=== PATIENT | male | born 1985 | race Caucasian/White ===

== ENCOUNTER 2018-02-01 05:35 | Emergency (ER) | payer OTHER ==
[2018-02-01] MEDS ORDERED: SODIUM CHLORIDE 0.9% 1,000 ML IV STA (05:53)
[2018-02-01] MEDS ORDERED: ACETAMINOPHEN TAB 500 MG TAB PO STA (05:53)
[2018-02-01] MEDS ORDERED: KETOROLAC 30 MG/ML 1 ML VIAL IVP STA (05:57)
--- NOTE | 2018-02-01 06:01 | ED ---
General Adult HPI - General Chief complaint: Weakness Stated complaint: WEAKNESS Time Seen by Provider: 02/01/18 05:40 Source: patient, RN notes reviewed, old records reviewed Mode of arrival: ambulatory Limitations: no limitations - History of Present Illness Initial comments: 32-year-old female presenting for evaluation of generalized weakness and fatigue. Patient states that proximally 4 hours prior to presentation he began having generalized weakness. He does report myalgias. Denies rhinorrhea or sore throat. He has had a mild cough. Only significant past medical history is asthma. He did have some mild dyspnea associated with his cough and chest pain. This is resolved. Complains of subjective fever and chills. No abdominal pain. No nausea or vomiting. - Related Data Previous Rx's Medication Instructions Recorded Albuterol Inhaler [Ventolin Hfa 2 puff INHALATION Q4HR PRN #1 07/07/14 Inhaler] inhaler Amoxicillin/Potassium Clav 1 tab PO Q12HR #20 tab 01/05/16 [Augmentin 875-125 Tablet] predniSONE 10 mg PO DIRECTED #20 tab 01/05/16 Ibuprofen [Motrin] 600 mg PO Q8HR PRN #24 tab 02/01/18 Oseltamivir [Tamiflu] 75 mg PO Q12HR #10 cap 02/01/18 Allergies Allergy/AdvReac Type Severity Reaction Status Date / Time No Known Allergies Allergy Verified 01/05/16 15:59 Review of Systems ROS Statement: Those systems with pertinent positive or pertinent negative responses have been documented in the HPI. ROS Other: All systems not noted in ROS Statement are negative. Past Medical History Past Medical History: Asthma History of Any Multi-Drug Resistant Organisms: None Reported Past Surgical History: Adenoidectomy, Tonsillectomy Past Psychological History: No Psychological Hx Reported Smoking Status: Current every day smoker Past Alcohol Use History: Occasional Past Drug Use History: None Reported General Exam Limitations: no limitations General appearance: alert, in no apparent distress Head exam: Present: atraumatic, normocephalic Eye exam: Present: normal appearance, PERRL ENT exam: Present: mucous membranes dry Neck exam: Present: normal inspection, full ROM. Absent: tenderness, meningismus Cardiovascular Exam: Present: normal rhythm, tachycardia GI/Abdominal exam: Present: soft. Absent: distended, tenderness Extremities exam: Present: normal inspection, normal capillary refill. Absent: pedal edema, calf tenderness Neurological exam: Present: alert, oriented X3, CN II-XII intact. Absent: motor sensory deficit Psychiatric exam: Present: normal affect, normal mood Skin exam: Present: warm, dry, intact. Absent: cyanosis, diaphoretic Course Vital Signs 02/01/18 02/01/18 05:40 06:24 Temperature 98.7 F 98.9 F Pulse Rate 82 118 H Respiratory 16 Rate Blood Pressure 164/92 O2 Sat by Pulse 98 98 Oximetry EKG Findings - EKG Comments: EKG Findings:: EKG shows sinus tachycardia, rate of 113, ME interval 146, QRS duration 96, QTC 452. Medical Decision Making - Medical Decision Making 32-year-old male presenting with flulike symptoms. Testing in the emergency department does reveal that he is influenza A pos. patient is given IV hydration , and Tylenol as well as Toradol. On reevaluation is feeling better. Laboratory studies are otherwise remarkable for mild leukocytosis. Chest x-ray is reviewed, negative for focal pneumonia. Patient will be started on Tamiflu as his symptoms began just several hours prior to arrival. - Lab Data Result diagrams: 02/01/18 06:08 02/01/18 06:08 Lab Results 02/01/18 02/01/18 02/01/18 Range/Units 06:08 06:08 06:08 WBC 11.9 H (3.8-10.6) k/uL RBC 5.19 (4.30-5.90) m/uL Hgb 15.2 (13.0-17.5) gm/dL Hct 44.1 (39.0-53.0) % MCV 85.0 (80.0-100.0) fL MCH 29.2 (25.0-35.0) pg MCHC 34.4 (31.0-37.0) g/dL RDW 12.4 (11.5-15.5) % Plt Count 268 (150-450) k/uL Neutrophils % 77 % Lymphocytes % 15 % Monocytes % 4 % Eosinophils % 3 % Basophils % 0 % Neutrophils # 9.2 H (1.3-7.7) k/uL Lymphocytes # 1.8 (1.0-4.8) k/uL Monocytes # 0.5 (0-1.0) k/uL Eosinophils # 0.3 (0-0.7) k/uL Basophils # 0.0 (0-0.2) k/uL PT (9.0-12.0) sec INR (<1.2) APTT (22.0-30.0) sec Sodium 141 (137-145) mmol/L Potassium 4.2 (3.5-5.1) mmol/L Chloride 106 (98-107) mmol/L Carbon Dioxide 23 (22-30) mmol/L Anion Gap 12 mmol/L BUN 12 (9-20) mg/dL Creatinine 0.80 (0.66-1.25) mg/dL Est GFR (CKD-EPI)AfAm >90 (>60 ml/min/1.73 sqM) Est GFR (CKD-EPI)NonAf >90 (>60 ml/min/1.73 sqM) Glucose 98 (74-99) mg/dL Plasma Lactic Acid Brett 1.7 (0.7-2.0) mmol/L Calcium 9.5 (8.4-10.2) mg/dL Magnesium 1.7 (1.6-2.3) mg/dL Total Bilirubin 0.4 (0.2-1.3) mg/dL AST 16 L (17-59) U/L ALT 19 L (21-72) U/L Alkaline Phosphatase 54 (38-126) U/L Total Protein 6.3 (6.3-8.2) g/dL Albumin 4.2 (3.5-5.0) g/dL Influenza Type A RNA (Not Detectd) Influenza Type B (PCR) (Not Detectd) 02/01/18 02/01/18 Range/Units 06:08 06:17 WBC (3.8-10.6) k/uL RBC (4.30-5.90) m/uL Hgb (13.0-17.5) gm/dL Hct (39.0-53.0) % MCV (80.0-100.0) fL MCH (25.0-35.0) pg MCHC (31.0-37.0) g/dL RDW (11.5-15.5) % Plt Count (150-450) k/uL Neutrophils % % Lymphocytes % % Monocytes % % Eosinophils % % Basophils % % Neutrophils # (1.3-7.7) k/uL Lymphocytes # (1.0-4.8) k/uL Monocytes # (0-1.0) k/uL Eosinophils # (0-0.7) k/uL Basophils # (0-0.2) k/uL PT 10.2 (9.0-12.0) sec INR 1.0 (<1.2) APTT 22.9 (22.0-30.0) sec Sodium (137-145) mmol/L Potassium (3.5-5.1) mmol/L Chloride (98-107) mmol/L Carbon Dioxide (22-30) mmol/L Anion Gap mmol/L BUN (9-20) mg/dL Creatinine (0.66-1.25) mg/dL Est GFR (CKD-EPI)AfAm (>60 ml/min/1.73 sqM) Est GFR (CKD-EPI)NonAf (>60 ml/min/1.73 sqM) Glucose (74-99) mg/dL Plasma Lactic Acid Brett (0.7-2.0) mmol/L Calcium (8.4-10.2) mg/dL Magnesium (1.6-2.3) mg/dL Total Bilirubin (0.2-1.3) mg/dL AST (17-59) U/L ALT (21-72) U/L Alkaline Phosphatase (38-126) U/L Total Protein (6.3-8.2) g/dL Albumin (3.5-5.0) g/dL Influenza Type A RNA Detected H (Not Detectd) Influenza Type B (PCR) Not Detected (Not Detectd) Disposition Clinical Impression: Influenza A Disposition: HOME SELF-CARE Condition: Good Instructions: Influenza (ED) Prescriptions: Ibuprofen [Motrin] 600 mg PO Q8HR PRN #24 tab PRN Reason: Pain Oseltamivir [Tamiflu] 75 mg PO Q12HR #10 cap Is patient prescribed a controlled substance at d/c from ED?: No Referrals: Kali Suarez MD [Primary Care Provider] - 1-2 days Time of Disposition: 07:11
[2018-02-01 06:20] LABS: Basophils % (A) 0 %; Eosinophils # (A) 0.3 k/uL (0-0.7); Eosinophils % (A) 3 %; HCT 44.1 % (39.0-53.0); HGB 15.2 gm/dL (13.0-17.5); Lymphocytes # (A) 1.8 k/uL (1.0-4.8); Lymphocytes % (A) 15 %; MCH 29.2 pg (25.0-35.0); MCHC 34.4 g/dL (31.0-37.0); Mean Platelet Volume 6.5; Monocytes # (A) 0.5 k/uL (0-1.0); Monocytes % (A) 4 %; Neutrophils # (A) 9.2 k/uL (1.3-7.7); Neutrophils % (A) 77 %; Platelet Count 268 k/uL (150-450); RBC 5.19 m/uL (4.30-5.90); RDW 12.4 % (11.5-15.5); WBC 11.9 k/uL (3.8-10.6)
[2018-02-01 06:25] VITALS: TEMP 98.9
[2018-02-01 06:31] LABS: Partial Thromboplastin Time 22.9 sec (22.0-30.0); Prothrombin Time 10.2 sec (9.0-12.0)
[2018-02-01 06:32] LABS: ALT 19 U/L (21-72); AST 16 U/L (17-59); Albumin 4.2 g/dL (3.5-5.0); Alkaline Phosphatase 54 U/L (38-126); Anion Gap 12 mmol/L; Blood Urea Nitrogen 12 mg/dL (9-20); Calcium 9.5 mg/dL (8.4-10.2); Carbon Dioxide 23 mmol/L (22-30); Chloride 106 mmol/L (98-107); Glucose 98 mg/dL (74-99); Magnesium 1.7 mg/dL (1.6-2.3); Potassium 4.2 mmol/L (3.5-5.1); Sodium 141 mmol/L (137-145); Total Bilirubin 0.4 mg/dL (0.2-1.3); Total Protein 6.3 g/dL (6.3-8.2)
[2018-02-01 06:52] VITALS: BP 138/84; PULSE 88; RESP 18
--- NOTE | 2018-02-01 07:26 | XR ---
EXAMINATION TYPE: XR chest 2V DATE OF EXAM: 02/01/2018 COMPARISON: 01/05/2016 TECHNIQUE: PA and lateral views submitted. HISTORY: Weakness FINDINGS: The lungs are clear and there is no pneumothorax, pleural effusion, or focal pneumonia. Hyperinflat ion noted. No overt failure. Blunting of the right costophrenic angle likely secondary to hyperinflat ion and stable from the previous exam. Correlate for COPD. IMPRESSION: 1. No acute process.
== END 2018-02-01 07:39 | disposition home or self-care (01) ==
LOC: EC 05:35
DX: J10.1 Influenza due to other identified influenza virus with other respiratory manifestations (principal); J45.909 Unspecified asthma, uncomplicated; F17.200 Nicotine dependence, unspecified, uncomplicated
CPT/HCPCS: 36415; 93005; 80053; 83605; 83735; 84484; 85025; 85610; 85730; 87502; 71046; 99285; 96374; 96361; J1885

== ENCOUNTER 2018-09-11 21:47 | Emergency (ER) | payer OTHER ==
[2018-09-11 22:20] VITALS: BP 146/89; PULSE 71; RESP 16; TEMP 98.1
[2018-09-11] MEDS ORDERED: FLUORESCEIN STRIPS 1 MG STRIP LEFT EYE ONE (22:22)
[2018-09-11] MEDS ORDERED: PROPARACAINE 0.5% OPHTH DROPS 15 ML BTL LEFT EYE STA (22:22)
[2018-09-11] MEDS ORDERED: ERYTHROMYCIN 5 MG/GM OPHTH OINT 3.5 GM TUBE BOTH EYES STA (23:36)
--- NOTE | 2018-09-11 23:50 | ED ---
Eye Problem HPI - General Source: patient, RN notes reviewed, old records reviewed Mode of arrival: ambulatory Limitations: no limitations <Shanta Cabrera - Last Filed: 09/30/18 15:51> <Hailey Lopez P - Last Filed: 10/04/18 03:59> - General Chief complaint: Eye Problems Stated complaint: rust in eye Time Seen by Provider: 09/11/18 22:33 - History of Present Illness Initial comments: Patient is a 33 helen male with CC of rust within the right eye. PAtient reports that hea had the rust within the eye around 2pm. Patient states that he attempted to flush the eye, but the pain progressed. Patient does wear glasses. Patient reports that the right eye continues to water. Denies pain with EOM, patient does have pain with bright light. (Shanta Cabrera) - Related Data Previous Rx's Medication Instructions Recorded Albuterol Inhaler [Ventolin Hfa 2 puff INHALATION Q4HR PRN #1 07/07/14 Inhaler] inhaler Amoxicillin/Potassium Clav 1 tab PO Q12HR #20 tab 01/05/16 [Augmentin 875-125 Tablet] predniSONE 10 mg PO DIRECTED #20 tab 01/05/16 Ibuprofen [Motrin] 600 mg PO Q8HR PRN #24 tab 02/01/18 Oseltamivir [Tamiflu] 75 mg PO Q12HR #10 cap 02/01/18 Erythromycin Ophth Oint [Romycin 1 applic RIGHT EYE QID #1 tube 09/11/18 Ophth Oint] Allergies Allergy/AdvReac Type Severity Reaction Status Date / Time No Known Allergies Allergy Verified 09/11/18 22:20 Review of Systems ROS Other: All systems not noted in ROS Statement are negative. <Shanta Cabrera - Last Filed: 09/30/18 15:51> ROS Other: All systems not noted in ROS Statement are negative. <Hailey Lopez P - Last Filed: 10/04/18 03:59> ROS Statement: Those systems with pertinent positive or pertinent negative responses have been documented in the HPI. Past Medical History Past Medical History: Asthma History of Any Multi-Drug Resistant Organisms: None Reported Past Surgical History: Adenoidectomy, Tonsillectomy Past Psychological History: No Psychological Hx Reported Smoking Status: Current every day smoker Past Alcohol Use History: Occasional Past Drug Use History: None Reported <Shanta Cabrera - Last Filed: 09/30/18 15:51> General Exam Limitations: no limitations General appearance: alert, in no apparent distress Head exam: Present: atraumatic, normocephalic, normal inspection Eye exam: Present: normal appearance, PERRL, EOMI, other (SMall piece of rust/ metal underneath upper eyelid. Removed on sweeping eyelid. Evidence of corenal abrasion. on eye exam. ). Absent: scleral icterus, conjunctival injection, periorbital swelling ENT exam: Present: normal exam, mucous membranes moist Neck exam: Present: normal inspection. Absent: tenderness, meningismus, lymphadenopathy Respiratory exam: Present: normal lung sounds bilaterally. Absent: respiratory distress, wheezes, rales, rhonchi, stridor Cardiovascular Exam: Present: regular rate, normal rhythm, normal heart sounds. Absent: systolic murmur, diastolic murmur, rubs, gallop, clicks <Shanta Cabrera - Last Filed: 09/30/18 15:51> <Hailey Lopez P - Last Filed: 10/04/18 03:59> - General Exam Comments Initial Comments: This is a 33 year old male, no distress. Room 33. Patient is with female accompanying him. . (Shanta Cabrera) Vital Signs 09/11/18 22:17 Temperature 98.1 F Pulse Rate 71 Respiratory 16 Rate Blood Pressure 146/89 O2 Sat by Pulse 98 Oximetry Medical Decision Making <Shanta Cabrera - Last Filed: 09/30/18 15:51> <Hailey Lopez P - Last Filed: 10/04/18 03:59> - Medical Decision Making Patient is a 33 year old male with CC of R eye foreign body/ metal and rust from work today. Patient eyelid flipped and I removed the foreign body from the eye. Patient has small corenal abrasion from the foreign body trapped under the eyelid.Patient placed on erythromycin ointment. Discussed return parameters. ( Shanta Cabrera) I was available for consultation in the emergency department. The history and physical exam were done by the Midlevel Provider. Medical decision making was done by the Midlevel Provider. The Midlevel Provider did not contact me for this patient's care. I was not directly involved in this patient's care. (Hailey Lopez) Disposition Is patient prescribed a controlled substance at d/c from ED?: No Time of Disposition: 23:49 <Shanta Cabrera - Last Filed: 09/30/18 15:51> <Hailey Lopez - Last Filed: 10/04/18 03:59> Clinical Impression: Eye foreign body Disposition: HOME SELF-CARE Condition: Good Instructions: Eye Foreign Body (ED) Additional Instructions: Patient advised to follow-up with primary care physician. Return to the emergency department if any alarming signs or symptoms occur. Prescriptions: Erythromycin Ophth Oint [Romycin Ophth Oint] 1 applic RIGHT EYE QID #1 tube Referrals: Kali Suarez MD [Primary Care Provider] - 1-2 days Alvaro Mcdonald MD [STAFF PHYSICIAN] - 1-2 days
== END 2018-09-11 23:55 | disposition home or self-care (01) ==
LOC: EC 21:47
DX: T15.91XA Foreign body on external eye, part unspecified, right eye, initial encounter (principal); F17.200 Nicotine dependence, unspecified, uncomplicated; Z53.8 Procedure and treatment not carried out for other reasons
CPT/HCPCS: 99283

== ENCOUNTER → 2019-02-12 | Outpatient (CLI) | payer OTHER ==
--- NOTE | 2019-02-12 19:52 | P.STRESS ---
- Stress Test Note Stress Test Results/Findings: Exam Performed: stress test Exam Date: 02/12/19 Reason for Exam: CHEST PAIN, TACHYCARDIA Height: 6 ft Weight: 70.307 kg Protocol: ONEIL Stage: IV Duration of Exercise: 10:21 Resting Heart Rate: 86 Resting Blood Pressure: 120/88 Maximum Achieved Heart Rate: 171 Maximum Achieved Blood Pressure: 178/75 85% PMHR: 158 100% PMHR: 186 METS: 12.1 Technologist Comment: Stress Test Results/Findings: Baseline heart rate 86 beats a minute, Baseline blood pressure 120/88 mmHg baseline 12-lead ECG shows sinus rhythm normal IA narrow QRS 0.[address] elevation inferolaterally Patient exercised on a Oneil protocol for 10 minutes 21 seconds achieving a peak heart rate of 170 beats a minute normal blood pressure response to exercise there was no ECG in for ischemia No arrhythmias noted Impression No ECG evidence for ischemia arrhythmia, excellent exercise capacity Normal heart rate and blood pressure response to exercise
--- NOTE | 2019-02-16 13:08 | HM ---
HOLTER MONITOR REPORT This is a 24-hour Holter monitor. This 24-hour Holter monitor shows sinus mechanism with heart rate ranging from 43 to 127 beats per minute, average heart rate 79 beats per minute. Occasional premature beats. Ventricular couplets and triplets. Occasional . Nighttime bradycardia in the 40s. No sustained or nonsustained arrhythmias. MMODL / IJN: [id number] /
== END | disposition home or self-care (01) ==
LOC: RADNMMAIN 08:45
PROVIDERS: ATTEND Family Medicine
DX: R07.9 Chest pain, unspecified (principal); R00.0 Tachycardia, unspecified
CPT/HCPCS: 93017; 93225; 93226

== ENCOUNTER 2019-04-24 20:16 | Emergency (ER) | payer OTHER ==
--- NOTE | 2019-04-24 21:14 | ED ---
Skin/Abscess/FB HPI - General Chief complaint: Skin/Abscess/Foreign Body Stated complaint: Sunburn Time Seen by Provider: 04/24/19 20:58 Source: patient Mode of arrival: ambulatory Limitations: no limitations - History of Present Illness Initial comments: Patient is a 34-year-old male presents emergency Department with complaints of a sunburn 1 day. Patient states he was out in the sun all day yesterday on the [place] and now has a sunburn on bilateral shoulders and upper back. Patient states he is having fever and chills today. Patient has no significant past medical history. Patient states he was feeling small blisters on the top of his shoulders and was concerned and came into the ER. Patient denies any nausea, vomiting. No other complaints at this time. - Related Data Home Medications Medication Instructions Recorded Confirmed Albuterol Inhaler [Ventolin Hfa 2 puff INHALATION RT-QID PRN 04/24/19 04/24/19 Inhaler] Albuterol Nebulized [Ventolin 2.5 mg INHALATION RT-QID PRN 04/24/19 04/24/19 Nebulized] Allergies Allergy/AdvReac Type Severity Reaction Status Date / Time No Known Allergies Allergy Verified 04/24/19 21:04 Review of Systems ROS Statement: Those systems with pertinent positive or pertinent negative responses have been documented in the HPI. ROS Other: All systems not noted in ROS Statement are negative. Past Medical History Past Medical History: Asthma History of Any Multi-Drug Resistant Organisms: None Reported Past Surgical History: Adenoidectomy, Tonsillectomy Past Psychological History: No Psychological Hx Reported Smoking Status: Current every day smoker Past Alcohol Use History: Occasional Past Drug Use History: None Reported General Exam - General Exam Comments Initial Comments: GENERAL: Well-appearing, well-nourished and in no acute distress. HEAD: Atraumatic, normocephalic. EYES: Pupils equal round and reactive to light, extraocular movements intact, sclera anicteric, conjunctiva are normal. ENT: TMs normal, nares patent, oropharynx clear without exudates. Moist mucous membranes. NECK: Normal range of motion, supple without lymphadenopathy or JVD. LUNGS: Breath sounds clear to auscultation bilaterally and equal. No wheezes rales or rhonchi. HEART: Regular rate and rhythm without murmurs, rubs or gallops. ABDOMEN: Soft, nontender, normoactive bowel sounds. No guarding, no rebound. No masses appreciated. : Deferred EXTREMITIES: Normal range of motion, no pitting or edema. No clubbing or cyanosis. NEUROLOGICAL: Cranial nerves II through XII grossly intact. Normal speech, normal gait. PSYCH: Normal mood, normal affect. SKIN: Patient has first-degree gonzalez of bilateral shoulders and upper back with very small blistering of the upper shoulders. Patient has tenderness of palpation. Limitations: no limitations Course Vital Signs 04/24/19 04/24/19 20:37 21:38 Temperature 98.3 F 98.2 F Pulse Rate 91 90 Respiratory 16 18 Rate Blood Pressure 148/80 145/78 O2 Sat by Pulse 98 98 Oximetry Medical Decision Making - Medical Decision Making Patient is a 34-year-old male presents to the emergency Department with complaints of a sunburn on bilateral shoulders and upper back. There is very mild, small blistering of the upper shoulders and first-degree sunburns of the upper back. Patient is afebrile and vital signs stable. Patient will be discharged home and counseled on sunburn relief. Patient will take Motrin for pain. Patient is in agreement with this plan and return parameters were discussed with the patient. Disposition Clinical Impression: Sunburn of first degree Disposition: HOME SELF-CARE Condition: Stable Instructions (If sedation given, give patient instructions): Sunburn (ED) Additional Instructions: Please return to the Emergency Department if symptoms worsen or any other concerns. Use Motrin for pain relief. Is patient prescribed a controlled substance at d/c from ED?: No Referrals: Kali Suarez MD [Primary Care Provider] - 1-2 days
[2019-04-24 21:41] VITALS: BP 145/78; PULSE 90; RESP 18; TEMP 98.2
== END 2019-04-24 21:37 | disposition home or self-care (01) ==
LOC: EC 20:16
DX: L55.1 Sunburn of second degree (principal); J45.909 Unspecified asthma, uncomplicated; F17.200 Nicotine dependence, unspecified, uncomplicated
CPT/HCPCS: 99282

== ENCOUNTER 2019-04-25 17:45 | Emergency (ER) | payer OTHER ==
[2019-04-25 17:55] VITALS: BP 131/75; PULSE 79; RESP 16; TEMP 97.7
--- NOTE | 2019-04-25 18:19 | ED ---
General Adult HPI - General Chief complaint: Burn/Smoke Inhalation Stated complaint: skin problems/scrape-revisit Time Seen by Provider: 04/25/19 17:58 Source: patient, RN notes reviewed Mode of arrival: ambulatory Limitations: no limitations - History of Present Illness Initial comments: 34-year-old male presents to the emergency department for chief quit sunburn. Patient states he had a sunburn from 2 days ago when he was riding on his boat and then went fishing. Patient states she was wearing a tank top and did not put on sunscreen all day. States that today he was getting out of the car to go to the parade when he hit his arm on the door and a small area on his right arm peeled. States that he has never had a sunburn that peeled like this before so he wanted to be evaluated. Denies any other blistering. Patient has no other complaints at this time including shortness of breath, chest pain, abdominal pain, nausea or vomiting, headache, or visual changes. - Related Data Home Medications Medication Instructions Recorded Confirmed Albuterol Inhaler [Ventolin Hfa 2 puff INHALATION RT-QID PRN 04/24/19 04/24/19 Inhaler] Albuterol Nebulized [Ventolin 2.5 mg INHALATION RT-QID PRN 04/24/19 04/24/19 Nebulized] Allergies Allergy/AdvReac Type Severity Reaction Status Date / Time No Known Allergies Allergy Verified 04/25/19 17:55 Review of Systems ROS Statement: Those systems with pertinent positive or pertinent negative responses have been documented in the HPI. ROS Other: All systems not noted in ROS Statement are negative. Past Medical History Past Medical History: Asthma History of Any Multi-Drug Resistant Organisms: None Reported Past Surgical History: Adenoidectomy, Tonsillectomy Past Psychological History: No Psychological Hx Reported Smoking Status: Current every day smoker Past Alcohol Use History: Occasional Past Drug Use History: None Reported General Exam Limitations: no limitations General appearance: alert, in no apparent distress Head exam: Present: atraumatic, normocephalic, normal inspection Eye exam: Present: normal appearance, PERRL, EOMI. Absent: scleral icterus, conjunctival injection, periorbital swelling ENT exam: Present: normal exam, mucous membranes moist Neck exam: Present: normal inspection, full ROM. Absent: tenderness, meningismus, lymphadenopathy Respiratory exam: Present: normal lung sounds bilaterally. Absent: respiratory distress, wheezes, rales, rhonchi, stridor Cardiovascular Exam: Present: regular rate, normal rhythm, normal heart sounds. Absent: systolic murmur, diastolic murmur, rubs, gallop, clicks Neurological exam: Present: alert, oriented X3, CN II-XII intact Psychiatric exam: Present: normal affect, normal mood Skin exam: Present: other (There is a 3 cm x 2 cm area of peeling skin noted to the right upper arm. There is erythema of the upper extremity with blanching. No other blistering noted.) Course Vital Signs 04/25/19 17:53 Temperature 97.7 F Pulse Rate 79 Respiratory 16 Rate Blood Pressure 131/75 O2 Sat by Pulse 97 Oximetry Medical Decision Making - Medical Decision Making 34-year-old male presents to the emergency department for some urine 2 days. States that today he was getting out of his car and he hit his arm against the door which caused him to peel. Patient is a 3 cm x 2 cm area of peeled skin otherwise no blistering noted. The skin was trimmed and antibiotic ointment applied. This was wrapped for patient. Patient was educated to use sunscreen in the future and to monitor for signs of infection. She actually has an appointment with his primary care provider tomorrow for this as they called him today to make a follow-up appointment as he was here yesterday. Patient requesting discharge as he is trying to go to the parade. Disposition Clinical Impression: Sunburn Disposition: HOME SELF-CARE Condition: Good Instructions (If sedation given, give patient instructions): Sunburn (ED) Additional Instructions: Please apply antibiotic ointment or aloe as needed to burn. Monitor for signs infection such as fever drainage return if these occur. Wear sunscreen whenever you are going to have some exposure. Follow-up with primary care in 1-2 days. Return if you have any worsening symptoms. Is patient prescribed a controlled substance at d/c from ED?: No Referrals: Kali Suarez MD [Primary Care Provider] - 1-2 days Time of Disposition: 18:18
== END 2019-04-25 18:25 | disposition home or self-care (01) ==
LOC: EC 17:45
DX: L55.9 Sunburn, unspecified (principal); J45.909 Unspecified asthma, uncomplicated; F17.200 Nicotine dependence, unspecified, uncomplicated
CPT/HCPCS: 99282

== ENCOUNTER 2019-05-23 05:48 | Emergency (ER) | payer OTHER ==
[2019-05-23 05:55] VITALS: TEMP 97.6
[2019-05-23] MEDS ORDERED: SODIUM CHLORIDE 0.9% 1,000 ML IV STA ×2 (06:14)
[2019-05-23 06:27] LABS: Basophils # (A) 0.1 k/uL (0-0.2); Basophils % (A) 1 %; Eosinophils # (A) 0.5 k/uL (0-0.7); Eosinophils % (A) 5 %; HCT 42.6 % (39.0-53.0); Lymphocytes # (A) 4.5 k/uL (1.0-4.8); Lymphocytes % (A) 39 %; MCH 29.2 pg (25.0-35.0); MCV 88.7 fL (80.0-100.0); Mean Platelet Volume 6.8; Monocytes # (A) 0.7 k/uL (0-1.0); Monocytes % (A) 6 %; Neutrophils # (A) 5.7 k/uL (1.3-7.7); Neutrophils % (A) 49 %; Platelet Count 230 k/uL (150-450); RDW 14.7 % (11.5-15.5); WBC 11.7 k/uL (3.8-10.6)
[2019-05-23] MEDS ORDERED: methylPREDNISolone SOD SUCCI 125 MG/2 ML VIAL IV STA (06:27)
[2019-05-23] MEDS ORDERED: KETOROLAC 30 MG/ML 1 ML VIAL IVP STA (06:27)
--- NOTE | 2019-05-23 06:28 | ED ---
Chest Pain HPI - General Chief Complaint: Chest Pain Stated Complaint: L Shoulder Pain Time Seen by Provider: 05/23/19 06:11 Source: patient, RN notes reviewed, old records reviewed Mode of arrival: ambulatory Limitations: no limitations - History of Present Illness Initial Comments: Patient is a 34-year-old male presents emergency department today with chief complaint of left shoulder pain. Patient reports that the pain radiates from his left shoulder and chest towards his neck. Patient states that he's had no symptoms since 5 PM yesterday evening. Patient reports that she's had no fevers or chills. She reports the pain seems worse with leaning forward. - Related Data Home Medications Medication Instructions Recorded Confirmed Albuterol Inhaler [Ventolin Hfa 2 puff INHALATION RT-QID PRN 04/24/19 05/23/19 Inhaler] Albuterol Nebulized [Ventolin 2.5 mg INHALATION RT-QID PRN 04/24/19 05/23/19 Nebulized] Naproxen [Naprosyn] 500 mg PO Q12HR PRN 05/23/19 05/23/19 Previous Rx's Medication Instructions Recorded methylPREDNISolone Dose Pack 4 mg PO DIRECTED #21 package 05/23/19 [Medrol Dose Pack] Allergies Allergy/AdvReac Type Severity Reaction Status Date / Time No Known Allergies Allergy Verified 05/23/19 07:00 Review of Systems ROS Statement: Those systems with pertinent positive or pertinent negative responses have been documented in the HPI. ROS Other: All systems not noted in ROS Statement are negative. EKG Findings - EKG Comments: EKG Findings:: Normal sinus rhythm with sinus arrhythmia. Incomplete right bundle branch, borderline ECG. Ventricle rate 68 bpm. AL internval 142 ms. QRS duration 102 ms. Qt/Qtc 402/427 ms. Past Medical History Past Medical History: Asthma History of Any Multi-Drug Resistant Organisms: None Reported Past Surgical History: Adenoidectomy, Tonsillectomy Past Psychological History: No Psychological Hx Reported Smoking Status: Current every day smoker Past Alcohol Use History: Occasional Past Drug Use History: None Reported General Exam - General Exam Comments Initial Comments: Alert and oriented 34-year-old male. No significant distress. Limitations: no limitations General appearance: alert, in no apparent distress Head exam: Present: atraumatic, normocephalic, normal inspection Eye exam: Present: normal appearance, PERRL, EOMI. Absent: scleral icterus, conjunctival injection, periorbital swelling ENT exam: Present: normal exam Neck exam: Present: normal inspection. Absent: tenderness, meningismus, lymphadenopathy Respiratory exam: Present: normal lung sounds bilaterally. Absent: respiratory distress, wheezes, rales, rhonchi, stridor Cardiovascular Exam: Present: regular rate, normal rhythm, normal heart sounds. Absent: systolic murmur, diastolic murmur, rubs, gallop, clicks GI/Abdominal exam: Present: soft Extremities exam: Present: normal inspection, full ROM, normal capillary refill. Absent: tenderness, pedal edema, joint swelling, calf tenderness Back exam: Present: normal inspection Course Vital Signs 05/23/19 05/23/19 05/23/19 05:52 06:35 07:29 Temperature 97.6 F Pulse Rate 76 56 L 53 L Respiratory 18 16 18 Rate Blood Pressure 139/82 128/80 128/54 O2 Sat by Pulse 98 98 97 Oximetry - Reevaluation(s) Reevaluation #1: 05/23/19 08:04 Performed bedside cardiac ultrasound. No evidence of significant pleural effusion this time. Chest Pain [facility] Patient is a 34-year-old male who presents emergency department today for evaluation for left-sided shoulder pain, pain to his anterior part of his chest. Patient reports pain sorry reproducible. Does report since even better with leaning forward. He seems to be in no distress at this time. He complains of pain since 5 PM yesterday. EKG shows no significant change. Patient's cardiac enzymes and lab work was reviewed and unremarkable. Performed bedside ultrasound identified a pericardial effusion this was relatively unremarkable. No significant effusion noted. Chest x-ray was reviewed and normal. He does have history of asthma. He is given a dose of Solu-Medrol. He is noted to be coughing. [facility] discussed the Patient pain could relate to muscle irritation or from asthma exacerbation. We'll discharge Patient with a short course of an temperature medicine steroid. Patient does answer return parameters were discussed. Discussed Patient be follow-up and cardiology follow-up. Disposition Clinical Impression: Chest pain made worse by breathing Disposition: HOME SELF-CARE Condition: Good Additional Instructions: Patient advised to follow-up with your primary care physician and recommended following up with cardiology. Return to the emergency department if any alarming signs or symptoms occur. Prescriptions: methylPREDNISolone Dose Pack [Medrol Dose Pack] 4 mg PO DIRECTED #21 package Is patient prescribed a controlled substance at d/c from ED?: No Referrals: Kali Suarez MD [Primary Care Provider] - 1-2 days Time of Disposition: 08:06
[2019-05-23 06:36] LABS: ALT 22 U/L (21-72); AST 16 U/L (17-59); African American GFR (CKD) >90 (>60 ml/min/1.73 sqM); Albumin 3.8 g/dL (3.5-5.0); Alkaline Phosphatase 52 U/L (38-126); Anion Gap 8 mmol/L; Blood Urea Nitrogen 17 mg/dL (9-20); Calcium 9.2 mg/dL (8.4-10.2); Carbon Dioxide 25 mmol/L (22-30); Chloride 110 mmol/L (98-107); Glucose 100 mg/dL (74-99); Magnesium 2.1 mg/dL (1.6-2.3); Potassium 3.8 mmol/L (3.5-5.1); Sodium 143 mmol/L (137-145); Total Bilirubin 0.2 mg/dL (0.2-1.3); Total Protein 6.2 g/dL (6.3-8.2)
[2019-05-23 06:40] LABS: D-Dimer 0.2 mg/L FEU (<0.60); Partial Thromboplastin Time 24.9 sec (22.0-30.0); Prothrombin Time 10.4 sec (9.0-12.0)
[2019-05-23 07:31] VITALS: RESP 18
--- NOTE | 2019-05-23 07:34 | XR ---
EXAM: XR Chest, 2 Views CLINICAL HISTORY: ITS.REASON XR Reason: Chest Pain TECHNIQUE: Frontal and lateral views of the chest. COMPARISON: No relevant prior studies available. FINDINGS: Lungs: Unremarkable. No consolidation. Pleural space: Unremarkable. No pneumothorax. Heart: No suspicious enlargement. Mediastinum: Unremarkable. Bones/joints: No acute fracture. IMPRESSION: No acute findings.
[2019-05-23 08:43] VITALS: BP 129/77; PULSE 63
== END 2019-05-23 08:41 | disposition home or self-care (01) ==
LOC: EC 05:48
DX: R07.1 Chest pain on breathing (principal); M25.512 Pain in left shoulder; G12.9 Spinal muscular atrophy, unspecified; J45.909 Unspecified asthma, uncomplicated; F17.200 Nicotine dependence, unspecified, uncomplicated; Z79.51 Long term (current) use of inhaled steroids; Z90.89 Acquired absence of other organs
CPT/HCPCS: 36415; 93005; 85379; 83880; 80053; 83735; 84484; 85025; 85610; 85730; 71046; 99285; 96374; 96375; 96361 ×2; J2930; J1885

== ENCOUNTER 2020-07-21 08:45 | Emergency (ER) | payer OTHER ==
[2020-07-21 08:54] VITALS: TEMP 98
[2020-07-21] MEDS ORDERED: IPRATROPIUM-ALBUTEROL 3 ML NEB INHALATION STA (09:16)
[2020-07-21] MEDS ORDERED: methylPREDNISolone SOD SUCCI 125 MG/2 ML VIAL IM STA (09:16)
--- NOTE | 2020-07-21 09:22 | ED ---
General Adult HPI - General Chief complaint: Shortness of Breath Stated complaint: chest congestion, cough Time Seen by Provider: 07/21/20 08:59 Source: patient, RN notes reviewed Mode of arrival: ambulatory Limitations: no limitations - History of Present Illness Initial comments: 35-year-old male with a past medical history of asthma presents to the emergency room for a chief complaint of cough. Patient reports he has had a cough and wheezing for 3 weeks now. Reports that he feels somewhat short of breath. Patient has been using his nebulizer and inhaler at home. About a week ago he was started on azithromycin and a Medrol Dosepak. States it did not seem to help. Patient has not had any fevers. He does not have chest pain. States the cough is dry in nature. Patient has no other complaints at this time including chest pain, abdominal pain, nausea or vomiting, headache, or visual changes. - Related Data Home Medications Medication Instructions Recorded Confirmed Albuterol Sulfate [Proair Hfa] 1 - 2 puff INHALATION RT-QID PRN 07/21/20 07/21/20 Cetirizine HCl 10 mg PO HS 07/21/20 07/21/20 Ergocalciferol [Vitamin D2] 50,000 unit PO Q30D 07/21/20 07/21/20 Fluticasone/Salmeterol [Advair 1 inhalation PO RT-BID 07/21/20 07/21/20 500-50 Diskus] Previous Rx's Medication Instructions Recorded Ipratropium-Albuterol Nebulize 3 ml INHALATION QID #20 neb 07/21/20 [Duoneb 0.5 mg-3 mg/3 ml Soln] predniSONE 50 mg PO DAILY #5 tablet 07/21/20 Allergies Allergy/AdvReac Type Severity Reaction Status Date / Time No Known Allergies Allergy Verified 07/21/20 09:59 Review of Systems ROS Statement: Those systems with pertinent positive or pertinent negative responses have been documented in the HPI. ROS Other: All systems not noted in ROS Statement are negative. Past Medical History Past Medical History: Asthma History of Any Multi-Drug Resistant Organisms: None Reported Past Surgical History: Adenoidectomy, Tonsillectomy Past Psychological History: No Psychological Hx Reported Smoking Status: Current every day smoker Past Alcohol Use History: Occasional Past Drug Use History: None Reported General Exam Limitations: no limitations General appearance: alert, in no apparent distress Head exam: Present: atraumatic, normocephalic, normal inspection Eye exam: Present: normal appearance, PERRL, EOMI. Absent: scleral icterus, conjunctival injection, periorbital swelling ENT exam: Present: normal exam, mucous membranes moist Neck exam: Present: normal inspection, full ROM. Absent: tenderness, meningismus, lymphadenopathy Respiratory exam: Present: normal lung sounds bilaterally. Absent: respiratory distress, wheezes, rales, rhonchi, stridor Cardiovascular Exam: Present: regular rate, normal rhythm, normal heart sounds. Absent: systolic murmur, diastolic murmur, rubs, gallop, clicks GI/Abdominal exam: Present: soft, normal bowel sounds. Absent: distended, tenderness, guarding, rebound, rigid Neurological exam: Present: alert Course Vital Signs 07/21/20 07/21/20 07/21/20 08:51 09:18 09:28 Temperature 98.0 F Pulse Rate 67 72 72 Respiratory 18 Rate Blood Pressure 139/85 O2 Sat by Pulse 97 Oximetry Medical Decision Making - Medical Decision Making Vitals are stable. Patient is 97% on room air. Respirations are even, nonlabored. Patient is not tripoding. Patient is well appearing at this time. He does have wheezing noted throughout lung marti. Patient was given DuoNeb which helped his symptoms much more than this albuterol which she has at home. Patient will be given a small prescription for home of this. Chest x-ray shows subtle patchy atelectasis versus early developing infiltrate in the periphery of the right midlung. This was reviewed by myself and Dr. Short. It images unimpressive Patient is currently on day 7 of azithromycin which is technically a 10 day course. He has not had any fevers. At this time recommend returning if he has any fevers or worsening symptoms. I will also give him 50 mg of prednisone for 5 days which will be a stronger course and the Medrol Dosepak. I did also discuss smoking cessation as patient smokes over a pack a day. Patient is aware that quitting will help with the resolution of the symptoms. Patient will again follow up with his doctor this week. He will return here for any worsening symptoms. Disposition Clinical Impression: Cough, Asthma exacerbation Disposition: HOME SELF-CARE Condition: Good Instructions (If sedation given, give patient instructions): Asthma (ED) Additional Instructions: Please use medications as directed. Follow-up with your doctor in one to 2 days. If you're having any worsening symptoms such as worsening shortness of breath return to the emergency room. Prescriptions: Ipratropium-Albuterol Nebulize [Duoneb 0.5 mg-3 mg/3 ml Soln] 3 ml INHALATION QID #20 neb predniSONE 50 mg PO DAILY #5 tablet Is patient prescribed a controlled substance at d/c from ED?: No Referrals: Kali Suarez MD [Primary Care Provider] - 1-2 days Time of Disposition: 10:28
--- NOTE | 2020-07-21 10:01 | XR ---
EXAMINATION TYPE: XR chest 2V DATE OF EXAM: 07/21/2020 COMPARISON: 05/23/2019 HISTORY: 35-year-old male cough TECHNIQUE: PA and lateral views FINDINGS: The cardiomediastinal silhouette, aorta, and pulmonary vasculature are within normal limits. A subtle patchy density peripheral right midlung. No other consolidation or pleural effusion is seen. IMPRESSION: Subtle patchy atelectasis versus early developing infiltrate in the periphery of the right midlung.
[2020-07-21 10:42] VITALS: BP 143/99; PULSE 96; RESP 19
== END 2020-07-21 10:45 | disposition home or self-care (01) ==
LOC: EC 08:45
DX: J45.901 Unspecified asthma with (acute) exacerbation (principal); F17.200 Nicotine dependence, unspecified, uncomplicated; Z79.899 Other long term (current) drug therapy; Z79.51 Long term (current) use of inhaled steroids; Z20.828 Contact with and (suspected) exposure to other viral communicable diseases
CPT/HCPCS: 94640; 71046; 99285; 96372; U0003; J2930

== ENCOUNTER 2023-04-25 12:54 | Emergency (ER) | payer OTHER ==
[2023-04-25 13:13] VITALS: BP 156/97; PULSE 90; RESP 18; TEMP 98.3
[2023-04-25] MEDS ORDERED: KETOROLAC 15 MG/ML 1 ML VIAL IM STA (13:32)
[2023-04-25] MEDS ORDERED: ORPHENADRINE 30 MG/ML 2 ML VIAL IM STA (13:32)
--- NOTE | 2023-04-25 13:43 | ED ---
General Adult HPI - General Chief complaint: Back Pain/Injury Stated complaint: upper back pain Time Seen by Provider: 04/25/23 13:10 Source: patient, RN notes reviewed, old records reviewed Mode of arrival: ambulatory Limitations: no limitations - History of Present Illness Initial comments: This is a 38-year-old male who presents emergency Department complaining of injuring his upper left back when he was helping his uncle with a camper yesterday. Patient states movement definitely makes it worse per patient states she's not breathing deep and only hurts very little. Patient states deep breaths does hurt more. Patient states that someone presses on it hurts much more per patient states he took some Flexeril yesterday did help a little bit. Patient denies any difficulty breathing or shortness of breath. Patient denies any chest pain. Patient denies any recent fever chills. Patient denies any other problems. - Related Data Home Medications Medication Instructions Recorded Confirmed Albuterol Sulfate [Proair Hfa] 1 - 2 puff INHALATION RT-QID PRN 07/21/20 07/21/20 Cetirizine HCl 10 mg PO HS 07/21/20 07/21/20 Ergocalciferol [Vitamin D2] 50,000 unit PO Q30D 07/21/20 07/21/20 Fluticasone Propion/Salmeterol 1 inhalation PO RT-BID 07/21/20 07/21/20 [Advair 500-50 Diskus] Previous Rx's Medication Instructions Recorded Ipratropium-Albuterol Nebulize 3 ml INHALATION QID #20 neb 07/21/20 [Duoneb 0.5 mg-3 mg/3 ml Soln] predniSONE 50 mg PO DAILY #5 tablet 07/21/20 Cyclobenzaprine [Flexeril] 10 mg PO TID #20 tab 04/25/23 Ketorolac [Toradol] 10 mg PO Q6HR #15 tab 04/25/23 Allergies Allergy/AdvReac Type Severity Reaction Status Date / Time No Known Allergies Allergy Verified 04/25/23 13:13 Review of Systems ROS Statement: Those systems with pertinent positive or pertinent negative responses have been documented in the HPI. ROS Other: All systems not noted in ROS Statement are negative. Past Medical History Past Medical History: Asthma History of Any Multi-Drug Resistant Organisms: None Reported Past Surgical History: Adenoidectomy, Tonsillectomy Past Psychological History: No Psychological Hx Reported Smoking Status: Current every day smoker Past Alcohol Use History: Occasional Past Drug Use History: None Reported General Exam - General Exam Comments Initial Comments: GENERAL: Patient is well-developed and well-nourished. Patient is nontoxic and well- hydrated and is in mild distress. ENT: Neck is soft and supple. No significant lymphadenopathy is noted. Oropharynx is clear. Moist mucous membranes. Neck has full range of motion without eliciting any pain. EYES: The sclera were anicteric and conjunctiva were pink and moist. Extraocular movements were intact and pupils were equal round and reactive to light. Eyelids were unremarkable. PULMONARY: Unlabored respirations. Good breath sounds bilaterally. No audible rales rhonchi or wheezing was noted. CARDIOVASCULAR: There is a regular rate and rhythm without any murmurs gallops or rubs. ABDOMEN: Soft and nontender with normal bowel sounds. SKIN: Skin is clear with no lesions or rashes and otherwise unremarkable. NEUROLOGIC: Patient is alert and oriented x3. Cranial nerves II through XII are grossly intact. Motor and sensory are also intact. Normal speech, volume and content. Symmetrical smile. MUSCULOSKELETAL: Patient has reproducible pain at the left rhomboid muscle. Worse with movement and worse with palpation. LYMPHATICS: No significant lymphadenopathy is noted PSYCHIATRIC: Normal psychiatric evaluation. Limitations: no limitations Course Vital Signs 04/25/23 13:10 Temperature 98.3 F Pulse Rate 90 Respiratory 18 Rate Blood Pressure 156/97 O2 Sat by Pulse 96 Oximetry Medical Decision Making - Medical Decision Making Was pt. sent in by a medical professional or institution (, PA, KINDERGARTEN ASSISTANT, urgent care, hospital, or [facility]...) When possible be specific @ -No Did you speak to anyone other than the patient for history (EMS, parent, family, police, friend...)? What history was obtained from this source @ -No Did you review nursing and triage notes (agree or disagree)? Why? @ -I reviewed and agree with nursing and triage notes Were old charts reviewed (outside hosp., previous admission, EMS record, old EKG, old radiological studies, urgent care reports/EKG's, [facility] records)? Report findings @ -No old charts were reviewed Differential Diagnosis (chest pain, altered mental status, abdominal pain women, abdominal pain men, vaginal bleeding, weakness, fever, dyspnea, syncope, headache, dizziness, GI bleed, back pain, seizure, CVA, palpatations, mental health, musculoskeletal)? @ -Differential Musculoskeletal Muscular strain, contusion, ligament sprain, fracture, arthritis, septic arthritis, bursitis, cellulitis, muscle spasm, nerve compression, DVT, arterial occlusion, herpes zoster, electrolyte abnormality, tumor.... This is not meant to be in all inclusive list EKG interpreted by me (3pts min.). @ -As above X-rays interpreted by me (1pt min.). @ -None done CT interpreted by me (1pt min.). @ -None done U/S interpreted by me (1pt. min.). @ -None done What testing was considered but not performed or refused? (CT, X-rays, U/S, labs)? Why? @ -None What meds were considered but not given or refused? Why? @ -None Did you discuss the management of the patient with other professionals (professionals i.e. , PA, KINDERGARTEN ASSISTANT, lab, RT, psych nurse, social services specialist, adjunct communications faculty member, teacher, forward air controller/air officer, case operator)? Give summary @ -No Was smoking cessation discussed for >3mins.? @ -No Was critical care preformed (if so, how long)? @ -No Were there social determinants of health that impacted care today? How? (Homelessness, low income, unemployed, alcoholism, drug addiction, transportation, low edu. Level, literacy, decrease access to med. care, fpc, rehab)? @ -No Was there de-escalation of care discussed even if they declined (Discuss DNR or withdrawal of care, Hospice)? DNR status @ -No What co-morbidities impacted this encounter? (DM, HTN, Smoking, COPD, CAD, Cancer, CVA, ARF, Chemo, Hep., AIDS, mental health diagnosis, sleep apnea, morbid obesity)? @ -None Was patient admitted / discharged? Hospital course, mention meds given and route, prescriptions, significant lab abnormalities, going to OR and other pertinent info. @ -Patient received Norflex and Toradol and felt better. Undiagnosed new problem with uncertain prognosis? @ -No Drug Therapy requiring intensive monitoring for toxicity (Heparin, Nitro, Insulin, Cardizem)? @ -No Were any procedures done? @ -No Diagnosis/symptom? @ -Musculoskeletal strain Acute, or Chronic, or Acute on Chronic? @ -Acute Uncomplicated (without systemic symptoms) or Complicated (systemic symptoms)? @ -Uncomplicated Side effects of treatment? @ -No Exacerbation, Progression, or Severe Exacerbation? @ -No Poses a threat to life or bodily function? How? (Chest pain, [place], [place], pneumonia, PE, COPD, DKA, ARF, appy, cholecystitis, CVA, Diverticulitis, Homicidal, Suicidal, threat to staff... and all critical care pts) @ -No Disposition Clinical Impression: Thoracic back pain Disposition: HOME SELF-CARE Condition: Good Instructions (If sedation given, give patient instructions): Back Pain (ED) Prescriptions: Cyclobenzaprine [Flexeril] 10 mg PO TID #20 tab Ketorolac [Toradol] 10 mg PO Q6HR #15 tab Is patient prescribed a controlled substance at d/c from ED?: No Referrals: None,Stated [Primary Care Provider] - 1-2 days Time of Disposition: 13:43
== END 2023-04-25 14:07 | disposition home or self-care (01) ==
LOC: EC 12:54
DX: M54.6 Pain in thoracic spine (principal); J45.909 Unspecified asthma, uncomplicated; F17.200 Nicotine dependence, unspecified, uncomplicated; Z79.51 Long term (current) use of inhaled steroids; Z79.899 Other long term (current) drug therapy
CPT/HCPCS: 99283; 96372 ×2; J2360; J1885

== ENCOUNTER 2023-07-13 07:21 | Emergency (ER) | payer BC, OTHER ==
[2023-07-13 07:38] VITALS: RESP 20
--- NOTE | 2023-07-13 08:03 | ED ---
Fever HPI - General Chief Complaint: Fever Stated Complaint: fever,body aches Time Seen by Provider: 07/13/23 07:24 Source: patient, RN notes reviewed Mode of arrival: ambulatory Limitations: no limitations - History of Present Illness Initial Comments: 38-year-old male presents emergency Department chief complaint of fever cough congestion. Patient states symptoms started 2 days ago. Patient states that his , it is sick with covid. Patient denies any chest pain or shortness breath though he did do a breathing treatment. Patient denies any nausea vomiting diarrhea constipation,complains bodyaches. - Related Data Home Medications Medication Instructions Recorded Confirmed Albuterol Sulfate [Proair Hfa] 1 - 2 puff INHALATION RT-QID PRN 07/21/20 07/21/20 Cetirizine HCl 10 mg PO HS 07/21/20 07/21/20 Ergocalciferol [Vitamin D2] 50,000 unit PO Q30D 07/21/20 07/21/20 Fluticasone Propion/Salmeterol 1 inhalation PO RT-BID 07/21/20 07/21/20 [Advair 500-50 Diskus] Previous Rx's Medication Instructions Recorded Ipratropium-Albuterol Nebulize 3 ml INHALATION QID #20 neb 07/21/20 [Duoneb 0.5 mg-3 mg/3 ml Soln] predniSONE 50 mg PO DAILY #5 tablet 07/21/20 Cyclobenzaprine [Flexeril] 10 mg PO TID #20 tab 04/25/23 Ketorolac [Toradol] 10 mg PO Q6HR #15 tab 04/25/23 Allergies Allergy/AdvReac Type Severity Reaction Status Date / Time No Known Allergies Allergy Verified 07/13/23 07:28 Review of Systems ROS Statement: Those systems with pertinent positive or pertinent negative responses have been documented in the HPI. ROS Other: All systems not noted in ROS Statement are negative. Past Medical History Past Medical History: Asthma History of Any Multi-Drug Resistant Organisms: None Reported Past Surgical History: Adenoidectomy, Tonsillectomy Past Psychological History: No Psychological Hx Reported Smoking Status: Current every day smoker Past Alcohol Use History: Occasional Past Drug Use History: None Reported General Exam Limitations: no limitations General appearance: alert, in no apparent distress Head exam: Present: atraumatic, normocephalic, normal inspection Eye exam: Present: normal appearance, PERRL, EOMI. Absent: scleral icterus, conjunctival injection, periorbital swelling ENT exam: Present: normal exam, normal oropharynx, mucous membranes moist Neck exam: Present: normal inspection, full ROM. Absent: tenderness, meningismus, lymphadenopathy Respiratory exam: Present: normal lung sounds bilaterally. Absent: respiratory distress, wheezes, rales, rhonchi, stridor Cardiovascular Exam: Present: regular rate, normal rhythm, normal heart sounds. Absent: systolic murmur, diastolic murmur, rubs, gallop, clicks Neurological exam: Present: alert, oriented X3 Course Vital Signs 07/13/23 07/13/23 07:23 07:31 Temperature 98.1 F Pulse Rate 100 Respiratory 18 20 Rate Blood Pressure 134/85 O2 Sat by Pulse 97 Oximetry Medical Decision Making - Medical Decision Making Was pt. sent in by a medical professional or institution (, PA, [facility], urgent care, hospital, or alf...) When possible be specific @ -No Did you speak to anyone other than the patient for history (EMS, parent, family, police, friend...)? What history was obtained from this source @ -No Did you review nursing and triage notes (agree or disagree)? Why? @ -I reviewed and agree with nursing and triage notes Were old charts reviewed (outside hosp., previous admission, EMS record, old EKG, old radiological studies, urgent care reports/EKG's, alf records)? Report findings @ -No old charts were reviewed Differential Diagnosis (chest pain, altered mental status, abdominal pain women, abdominal pain men, vaginal bleeding, weakness, fever, dyspnea, syncope, headache, dizziness, GI bleed, back pain, seizure, CVA, palpatations, mental health, musculoskeletal)? @ -Fever, URI, influenza, covid 19 EKG interpreted by me (3pts min.). @ -None X-rays interpreted by me (1pt min.). @ -None done CT interpreted by me (1pt min.). @ -None done U/S interpreted by me (1pt. min.). @ -None done What testing was considered but not performed or refused? (CT, X-rays, U/S, labs)? Why? @ -None What meds were considered but not given or refused? Why? @ -None Did you discuss the management of the patient with other professionals (professionals i.e. , PA, D[employer], lab, RT, psych nurse, long term care social worker, trailer mechanic, teacher, surveillance sensor officer, corrections caseworker)? Give summary @ -No Was smoking cessation discussed for >3mins.? @ -No Was critical care preformed (if so, how long)? @ -No Were there social determinants of health that impacted care today? How? (Homelessness, low income, unemployed, alcoholism, drug addiction, transportation, low edu. Level, literacy, decrease access to med. care, assisted, rehab)? @ -No Was there de-escalation of care discussed even if they declined (Discuss DNR or withdrawal of care, Hospice)? DNR status @ -No What co-morbidities impacted this encounter? (DM, HTN, Smoking, COPD, CAD, Cancer, CVA, ARF, Chemo, Hep., AIDS, mental health diagnosis, sleep apnea, morbid obesity)? @ -None Was patient admitted / discharged? Hospital course, mention meds given and route, prescriptions, significant lab abnormalities, going to OR and other pertinent info. @ -[Discharge patient is positive for Covid 19. Patient is stable and no signs of distress. Undiagnosed new problem with uncertain prognosis? @ -No Drug Therapy requiring intensive monitoring for toxicity (Heparin, Nitro, Insulin, Cardizem)? @ -No Were any procedures done? @ -No Diagnosis/symptom? @ -Covid 19 Acute, or Chronic, or Acute on Chronic? @ -[Acute Uncomplicated (without systemic symptoms) or Complicated (systemic symptoms)? @ -[Uncomplicated Side effects of treatment? @ -No Exacerbation, Progression, or Severe Exacerbation? @ -No Poses a threat to life or bodily function? How? (Chest pain, [place], [place], pneumonia, PE, COPD, DKA, ARF, appy, cholecystitis, CVA, Diverticulitis, Homicidal, Suicidal, threat to staff... and all critical care pts) @ -No - Lab Data Lab Results 07/13/23 Range/Units 07:40 Coronavirus (PCR) Detected A (Not Detectd) Disposition Clinical Impression: COVID-19 Disposition: HOME SELF-CARE Condition: Stable Instructions (If sedation given, give patient instructions): COVID-19 (Cor onavirus Disease 2019) (ED) Additional Instructions: Please return to the Emergency Department if symptoms worsen or any other concerns. Is patient prescribed a controlled substance at d/c from ED?: No Referrals: None,Stated [Primary Care Provider] - 1-2 days Time of Disposition: 08:23
[2023-07-13 08:36] VITALS: BP 126/78; PULSE 76; TEMP 98.4
== END 2023-07-13 08:30 | disposition home or self-care (01) ==
LOC: EC 07:21
DX: U07.1 COVID-19 (principal); J45.909 Unspecified asthma, uncomplicated; F17.200 Nicotine dependence, unspecified, uncomplicated; Z79.899 Other long term (current) drug therapy; Z79.51 Long term (current) use of inhaled steroids
CPT/HCPCS: 87635; 99283

== ENCOUNTER 2023-09-07 07:36 | Emergency (ER) | payer BC ==
--- NOTE | 2023-09-07 07:39 | ED ---
General Adult HPI - General Source: patient, RN notes reviewed Mode of arrival: ambulatory Limitations: no limitations <Peter Baron - Last Filed: 09/07/23 07:38> <Destiny Parr - Last Filed: 09/09/23 16:32> - General Stated complaint: Urogenital Time Seen by Provider: 09/07/23 07:38 - History of Present Illness Initial comments: 38-year-old male presents emergency Department with chief complaint of flank pain, kidney stone, UTI. Patient was seen at [facility] yesterday recommend him to be transferred secondary to UTI with kidney stone. Patient states that due to family situation he had home. Patient states he still having discomfort. He did receive antibiotics yesterday. He states he was told he had a 3 mm kidney stone but because he had a UTI they're concerned. (Peter Baron) 38-year-old male who presents emergency departments reporting to kidney stone pain. States he was seen at [facility] yesterday. They found that he had a urinary tract infection with a right ureteral stone. They recommended that the patient be transferred to our hospital for urology evaluation however the patient wanted to go home. He states that he does have some dull pain in the right flank. He did receive antibiotics yesterday and did receive a prescription for antibiotics however he has not taken any. He denies any fevers. No nausea or vomiting. Continues to urinate without difficulty. He has a history of kidney stones. Presents today for further evaluation. No other alleviating, precipitating or modifying factors (Destiny Parr) - Related Data Home Medications Medication Instructions Recorded Confirmed Albuterol Sulfate [Proair Hfa] 1 - 2 puff INHALATION RT-QID PRN 07/21/20 07/21/20 Cetirizine HCl 10 mg PO HS 07/21/20 07/21/20 Ergocalciferol [Vitamin D2] 50,000 unit PO Q30D 07/21/20 07/21/20 Fluticasone Propion/Salmeterol 1 inhalation PO RT-BID 07/21/20 07/21/20 [Advair 500-50 Diskus] Previous Rx's Medication Instructions Recorded Ipratropium-Albuterol Nebulize 3 ml INHALATION QID #20 neb 07/21/20 [Duoneb 0.5 mg-3 mg/3 ml Soln] predniSONE 50 mg PO DAILY #5 tablet 07/21/20 Cyclobenzaprine [Flexeril] 10 mg PO TID #20 tab 04/25/23 Ketorolac [Toradol] 10 mg PO Q6HR #15 tab 04/25/23 Fluconazole [Diflucan] 200 mg PO DAILY #14 tablet 09/07/23 Ketorolac [Toradol] 10 mg PO Q8HR PRN #15 tab 09/07/23 Tamsulosin [Flomax] 0.4 mg PO DAILY #30 cap 09/07/23 Allergies Allergy/AdvReac Type Severity Reaction Status Date / Time No Known Allergies Allergy Verified 09/07/23 07:44 Review of Systems ROS Other: All systems not noted in ROS Statement are negative. <Peter Baron - Last Filed: 09/07/23 07:38> ROS Other: All systems not noted in ROS Statement are negative. <Destiny Parr - Last Filed: 09/09/23 16:32> ROS Statement: Those systems with pertinent positive or pertinent negative responses have been documented in the HPI. Past Medical History Past Medical History: Asthma History of Any Multi-Drug Resistant Organisms: None Reported Past Surgical History: Adenoidectomy, Tonsillectomy Past Psychological History: No Psychological Hx Reported Smoking Status: Current every day smoker Past Alcohol Use History: Occasional Past Drug Use History: None Reported <Peter Baron - Last Filed: 09/07/23 07:38> General Exam <Peter Baron - Last Filed: 09/07/23 07:38> General appearance: alert, in no apparent distress Head exam: Present: atraumatic, normocephalic, normal inspection Eye exam: Present: normal appearance, PERRL, EOMI. Absent: scleral icterus, conjunctival injection, periorbital swelling ENT exam: Present: normal exam, mucous membranes moist Neck exam: Present: normal inspection. Absent: tenderness, meningismus, lymphadenopathy Respiratory exam: Present: normal lung sounds bilaterally. Absent: respiratory distress, wheezes, rales, rhonchi, stridor Cardiovascular Exam: Present: regular rate, normal rhythm, normal heart sounds. Absent: systolic murmur, diastolic murmur, rubs, gallop, clicks GI/Abdominal exam: Present: soft, normal bowel sounds. Absent: distended, tenderness, guarding, rebound, rigid Extremities exam: Present: normal inspection, full ROM, normal capillary refill. Absent: tenderness, pedal edema, joint swelling, calf tenderness Back exam: Present: normal inspection Neurological exam: Present: alert, oriented X3, CN II-XII intact Psychiatric exam: Present: normal affect, normal mood Skin exam: Present: warm, dry, intact, normal color. Absent: rash <Destiny Parr - Last Filed: 09/09/23 16:32> - General Exam Comments Initial Comments: Visual Physical Exam Vital signs reviewed General: Well-appearing, nontoxic, no acute distress. Head: Normocephalic, atraumatic Eyes: PERRLA, EOMI ENT: Airway patent Chest: Nonlabored breathing Skin: No visual rash, normal skin tone Neuro: Alert and oriented 3 Musculoskeletal: No gross abnormalities (Peter Baron) Course Vital Signs 09/07/23 09/07/23 09/07/23 07:40 08:06 10:15 Temperature 97 F L Pulse Rate 108 H 85 75 Respiratory 18 20 20 Rate Blood Pressure 159/85 145/85 145/78 O2 Sat by Pulse 98 98 98 Oximetry Medical Decision Making <Peter Baron - Last Filed: 09/07/23 07:38> - Lab Data Result diagrams: 09/07/23 07:54 09/07/23 07:54 <Destiny Parr - Last Filed: 09/09/23 16:32> - Medical Decision Making I completed the quick note portion of this chart signed Peter Baron PA-C (Peter Baron) Was pt. sent in by a medical professional or institution (AINSLEY Coffman, [facility] [employer], urgent care, hospital, or assisted...) When possible be specific @ -No Did you speak to anyone other than the patient for history (EMS, parent, family, police, friend...)? What history was obtained from this source @ -No Did you review nursing and triage notes (agree or disagree)? Why? @ -I reviewed and agree with nursing and triage notes Were old charts reviewed (outside hosp., previous admission, EMS record, old EKG, old radiological studies, urgent care reports/EKG's, assisted records)? Report findings @ -I reviewed the patient's ED visit from yesterday Differential Diagnosis (chest pain, altered mental status, abdominal pain women, abdominal pain men, vaginal bleeding, weakness, fever, dyspnea, syncope, headache, dizziness, GI bleed, back pain, seizure, CVA, palpatations, mental health, musculoskeletal)? @ -Differential Abdominal Pain Men: Appendicitis, cholecystitis, diverticulosis, ischemic bowel, pancreatitis, hepatitis, UTI, gastroenteritis, AAA, incarcerated hernia, bowel obstruction, constipation, inflammatory bowel, hepatitis, peptic ulcer disease, splenic infarction, perforated viscus, testicular torsion, this is not meant to be an all-inclusive list EKG interpreted by me (3pts min.). @ -Not done X-rays interpreted by me (1pt min.). @ -None done CT interpreted by me (1pt min.). @ -None done U/S interpreted by me (1pt. min.). @ -None done What testing was considered but not performed or refused? (CT, X-rays, U/S, la bs)? Why? @ -CT considered however patient had one yesterday What meds were considered but not given or refused? Why? @ -None Did you discuss the management of the patient with other professionals (professionals i.e. , PA, SHOULDER SAWYER, lab, RT, psych nurse, director of social services, steel worker, teacher, wildlife officer, leather case finisher)? Give summary @ -No Was smoking cessation discussed for >3mins.? @ -No Was critical care preformed (if so, how long)? @ -No Were there social determinants of health that impacted care today? How? (Homelessness, low income, unemployed, alcoholism, drug addiction, transportation, low edu. Level, literacy, decrease access to med. care, shelter, rehab)? @ -No Was there de-escalation of care discussed even if they declined (Discuss DNR or withdrawal of care, Hospice)? DNR status @ -No What co-morbidities impacted this encounter? (DM, HTN, Smoking, COPD, CAD, Cancer, CVA, ARF, Chemo, Hep., AIDS, mental health diagnosis, sleep apnea, morbid obesity)? @ -None Was patient admitted / discharged? Hospital course, mention meds given and route, prescriptions, significant lab abnormalities, going to OR and other pertinent info. @ -Discharged. Upon arrival patient is placed into room 17. Thorough history and physical exam was performed. Patient does have marya in his urine. No bacteria. Repeat laboratory studies demonstrate no elevation and was white blood cell count. I spoke with the patient in regards to his symptoms. No signs of septic stone at this time. He will continue on the antibiotic as it has already been started. I will send his specimen for urine culture. He'll be placed on Toradol for pain control as well as Flomax. He is to strain all of his urine. I will prescribe him an antifungal to take after all of his antibiotics or done. He is to return to the emergency room for any new or worsening symptoms but otherwise follow up with urology Undiagnosed new problem with uncertain prognosis? @ -No Drug Therapy requiring intensive monitoring for toxicity (Heparin, Nitro, Ins ulin, Cardizem)? @ -No Were any procedures done? @ -No Diagnosis/symptom? @ -Acute right flank pain, acute right ureteral stone, mild hydronephrosis, possible fungal UTI Acute, or Chronic, or Acute on Chronic? @ -Acute Uncomplicated (without systemic symptoms) or Complicated (systemic symptoms)? @ -Complicated Side effects of treatment? @ -No Exacerbation, Progression, or Severe Exacerbation? @ -No Poses a threat to life or bodily function? How? (Chest pain, [place], [place], pneumonia, PE, COPD, DKA, ARF, appy, cholecystitis, CVA, Diverticulitis, Homicidal, Suicidal, threat to staff... and all critical care pts) @ -No (Destiny Parr) - Lab Data Lab Results 09/07/23 09/07/23 09/07/23 Range/Units 07:54 07:54 07:54 WBC 8.2 (3.8-10.6) k/uL RBC 5.06 (4.30-5.90) m/uL Hgb 15.1 (13.0-17.5) gm/dL Hct 44.2 (39.0-53.0) % MCV 87.3 (80.0-100.0) fL MCH 29.9 (25.0-35.0) pg MCHC 34.2 (31.0-37.0) g/dL RDW 12.5 (11.5-15.5) % Plt Count 250 (150-450) k/uL MPV 7.5 Neutrophils % 45 % Lymphocytes % 40 % Monocytes % 8 % Eosinophils % 4 % Basophils % 1 % Neutrophils # 3.7 (1.3-7.7) k/uL Lymphocytes # 3.3 (1.0-4.8) k/uL Monocytes # 0.7 (0-1.0) k/uL Eosinophils # 0.3 (0-0.7) k/uL Basophils # 0.0 (0-0.2) k/uL Sodium 141 (137-145) mmol/L Potassium 4.3 (3.5-5.1) mmol/L Chloride 108 H (98-107) mmol/L Carbon Dioxide 24 (22-30) mmol/L Anion Gap 9 mmol/L BUN 19 (9-20) mg/dL Creatinine 0.84 (0.66-1.25) mg/dL Est GFR (CKD-EPI)AfAm >90 (>60 ml/min/1.73 sqM) Est GFR (CKD-EPI)NonAf >90 (>60 ml/min/1.73 sqM) Glucose 84 (74-99) mg/dL Plasma Lactic Acid Brett (0.7-2.0) mmol/L Calcium 9.5 (8.4-10.2) mg/dL Total Bilirubin 0.3 (0.2-1.3) mg/dL AST 24 (17-59) U/L ALT 30 (4-49) U/L Alkaline Phosphatase 53 (38-126) U/L Total Protein 6.6 (6.3-8.2) g/dL Albumin 4.3 (3.5-5.0) g/dL Lipase 91 (23-300) U/L Urine Color BROWN Urine Appearance Slightly Cloudy (Clear) Urine RBC >182 H (0-5) /hpf Urine WBC 76 H (0-5) /hpf Urine Mucus Moderate H (None) /hpf Urine Yeast (Budding) Many H (None) /hpf 09/07/23 Range/Units 07:54 WBC (3.8-10.6) k/uL RBC (4.30-5.90) m/uL Hgb (13.0-17.5) gm/dL Hct (39.0-53.0) % MCV (80.0-100.0) fL MCH (25.0-35.0) pg MCHC (31.0-37.0) g/dL RDW (11.5-15.5) % Plt Count (150-450) k/uL MPV Neutrophils % % Lymphocytes % % Monocytes % % Eosinophils % % Basophils % % Neutrophils # (1.3-7.7) k/uL Lymphocytes # (1.0-4.8) k/uL Monocytes # (0-1.0) k/uL Eosinophils # (0-0.7) k/uL Basophils # (0-0.2) k/uL Sodium (137-145) mmol/L Potassium (3.5-5.1) mmol/L Chloride (98-107) mmol/L Carbon Dioxide (22-30) mmol/L Anion Gap mmol/L BUN (9-20) mg/dL Creatinine (0.66-1.25) mg/dL Est GFR (CKD-EPI)AfAm (>60 ml/min/1.73 sqM) Est GFR (CKD-EPI)NonAf (>60 ml/min/1.73 sqM) Glucose (74-99) mg/dL Plasma Lactic Acid Brett 1.5 (0.7-2.0) mmol/L Calcium (8.4-10.2) mg/dL Total Bilirubin (0.2-1.3) mg/dL AST (17-59) U/L ALT (4-49) U/L Alkaline Phosphatase (38-126) U/L Total Protein (6.3-8.2) g/dL Albumin (3.5-5.0) g/dL Lipase (23-300) U/L Urine Color Urine Appearance (Clear) Urine RBC (0-5) /hpf Urine WBC (0-5) /hpf Urine Mucus (None) /hpf Urine Yeast (Budding) (None) /hpf Disposition <Peter Baron - Last Filed: 09/07/23 07:38> Is patient prescribed a controlled substance at d/c from ED?: No Time of Disposition: 09:56 <eDstiny Parr - Last Filed: 09/09/23 16:32> Clinical Impression: Ureteral stone with hydronephrosis, Yeast cystitis Disposition: HOME SELF-CARE Condition: Stable Instructions (If sedation given, give patient instructions): Kidney Stones (ED) Additional Instructions: Take the Flomax every day. Take the Keflex as directed. Use the Toradol as needed for pain. Strain all of your urine. Increase fluid intake. If you continue to have discomfort when the antibiotics are finished, take the Diflucan which is for yeast infections. Return should you develop a fever or have unco ntrolled pain Prescriptions: Fluconazole [Diflucan] 200 mg PO DAILY #14 tablet Tamsulosin [Flomax] 0.4 mg PO DAILY #30 cap Ketorolac [Toradol] 10 mg PO Q8HR PRN #15 tab PRN Reason: Pain Referrals: Ottoniel Redmond MD [Primary Care Provider] - 1-2 days Jose L Dupree MD [STAFF PHYSICIAN] - 1-2 days
[2023-09-07 08:21] LABS: ALT 30 U/L (4-49); AST 24 U/L (17-59); African American GFR (CKD) >90 (>60 ml/min/1.73 sqM); Albumin 4.3 g/dL (3.5-5.0); Alkaline Phosphatase 53 U/L (38-126); Anion Gap 9 mmol/L; Blood Urea Nitrogen 19 mg/dL (9-20); Calcium 9.5 mg/dL (8.4-10.2); Carbon Dioxide 24 mmol/L (22-30); Chloride 108 mmol/L (98-107); Glucose 84 mg/dL (74-99); Lipase 91 U/L (23-300); Non-African American GFR(CKD) >90 (>60 ml/min/1.73 sqM); Potassium 4.3 mmol/L (3.5-5.1); Sodium 141 mmol/L (137-145); Total Bilirubin 0.3 mg/dL (0.2-1.3); Total Protein 6.6 g/dL (6.3-8.2)
[2023-09-07 08:27] LABS: Basophils % (A) 1 %; Eosinophils # (A) 0.3 k/uL (0-0.7); Eosinophils % (A) 4 %; HCT 44.2 % (39.0-53.0); HGB 15.1 gm/dL (13.0-17.5); Lymphocytes # (A) 3.3 k/uL (1.0-4.8); Lymphocytes % (A) 40 %; MCH 29.9 pg (25.0-35.0); MCHC 34.2 g/dL (31.0-37.0); MCV 87.3 fL (80.0-100.0); Mean Platelet Volume 7.5; Monocytes # (A) 0.7 k/uL (0-1.0); Monocytes % (A) 8 %; Neutrophils # (A) 3.7 k/uL (1.3-7.7); Neutrophils % (A) 45 %; Platelet Count 250 k/uL (150-450); RBC 5.06 m/uL (4.30-5.90); RDW 12.5 % (11.5-15.5); WBC 8.2 k/uL (3.8-10.6)
[2023-09-07 08:35] VITALS: RESP 20; TEMP 97
[2023-09-07 08:48] LABS: Budding Yeast,Urine Many /hpf; Mucus,Urine Moderate /hpf; RBC,Urine >182 /hpf (0-5); WBC,Urine 76 /hpf (0-5)
[2023-09-07 08:53] LABS: Appearance,Urine Slightly Cloudy (Clear)
[2023-09-07 08:54] LABS: Color,Urine BROWN
[2023-09-07 10:36] VITALS: BP 145/78; PULSE 75
== END 2023-09-07 10:16 | disposition home or self-care (01) ==
LOC: EC 07:36
DX: N13.2 Hydronephrosis with renal and ureteral calculous obstruction (principal); B37.41 Candidal cystitis and urethritis; J45.909 Unspecified asthma, uncomplicated; F17.200 Nicotine dependence, unspecified, uncomplicated; Z79.899 Other long term (current) drug therapy; Z79.51 Long term (current) use of inhaled steroids
CPT/HCPCS: 36415; 80053; 81001; 83605; 83690; 85025; 87086; 99284

== ENCOUNTER → 2023-10-28 | Outpatient (CLI) | payer BC, OTHER ==
--- NOTE | 2023-11-01 12:08 | MR ---
EXAMINATION TYPE: MR cervical spine wo con DATE OF EXAM: 10/28/2023 7:43 PM COMPARISON: NONE HISTORY: Neck pain, Numbness both arms when raises them, Headaches, x6 months Multiplanar MultiSpin echo imaging of the cervical spine was performed. Comparison: none C2-C3: No evidence for degenerative disc disease. No disc bulge/herniation or protrusion. No Canal stenosis. Foramina are patent bilaterally. C3-C4: Moderate disc desiccation with posterior disc bulge. 2.3 mm retrolisthesis of C4 and C5. Effac ement of the ventral thecal sac posterocentrally into the right where there is right neural foraminal encroachment mild in degree. There is no evidence for central stenosis. C4-C5: Moderate disc desiccation with right paracentral disc bulge strategically situated at the leve l of the right neural foramen where there is moderate right foraminal encroachment. No evidence for c entral disc herniation or central stenosis. Left-sided foramina is patent. C5-C6: Mild disc desiccation with minimal posterior disc bulge. Minimal effacement of the ventral the nadia sac. No central stenosis or guy disc herniation. Mild bilateral neural foraminal encroachment. C6-C7: No evidence for degenerative disc disease. No disc bulge/herniation or protrusion. No Canal stenosis. Foramina are patent bilaterally. Incidental C6 hemangioma. C7-T1: No evidence for degenerative disc disease. No disc bulge/herniation or protrusion. No Canal stenosis. Foramina are patent bilaterally. Cervical segments are intact. There is normal alignment. Cervical spinal cord is of normal signal. Craniovertebral junction relationships are within normal limits. IMPRESSION: 1. Multilevel degenerative disc disease. 2. There are degrees of foraminal encroachment as outlined above.
== END | disposition home or self-care (01) ==
LOC: RADMRIMAIN 18:49
PROVIDERS: ATTEND Orthopaedic Surgery Orthopaedic Surgery of the Spine
DX: M50.321 Other cervical disc degeneration at C4-C5 level (principal); M50.322 Other cervical disc degeneration at C5-C6 level; M79.10 Myalgia, unspecified site; M79.12 Myalgia of auxiliary muscles, head and neck; M54.59 Other low back pain; J44.89 Other specified chronic obstructive pulmonary disease
CPT/HCPCS: 72141

== ENCOUNTER 2023-12-27 09:00 | Day surgery (SDC) | payer OTHER ==
[2023-12-22 11:44] VITALS: BMI 23.0
[~2023-12-27 09:00] MED LIST: LACTATED RINGERS 1,000 ML IV SCH
[2023-12-27 09:37] VITALS: RESP 16; TEMP 97.1
[2023-12-27] MEDS ORDERED: DEXAMETHASONE SOD PHOSPHATE 10 MG/ML 1 ML VIAL ONE (10:15)
[2023-12-27] MEDS ORDERED: IOPAMIDOL M200 10 ML VIAL ONE (10:15)
--- NOTE | 2023-12-27 10:39 | P.PCN ---
Date of Procedure: 12/27/23 Procedure(s) Performed: . PROCEDURE 1. Cervical epidural steroid injection under fluoroscopic guidance, C7-T1 2. Cervical epidurogram. PREOPERATIVE DIAGNOSIS: 1- Cervical Degenerative Disc Diseases 2- Cervical radiculopathy., 3-cervical spondylosis with cervical Facet arthropathy without myelopathy POSTOPERATIVE DIAGNOSIS: : 1- Cervical Degenerative Disc Diseases , 2- Cervical radiculopathy. 3-,cervical spondylosis with cervical Facet arthropathy without myelopathy ANESTHESIA: Local with 1% lidocaine EBL 0 SURGEON: Ranjit Hopkins MD PROCEDURE INDICATION: The patient with neck pain and radiculitis unresponsive to conservative treatment consents for procedure. MRI findings consistent with pathology PROCEDURE DESCRIPTION / TECHNIQUE: The patient was seen and identified in the preoperative area. Risks, benefits, complications, including but not limited to infections ,bleeding , allergic reactions to the medications ,and not complete pain releife, and alternatives were discussed with the patient, the patient agreed to proceed with the procedure and signed the consent. Patient was taken to the OR and time out was completed. The patient was placed in the prone position on the procedure table. A pillow was placed under the patients chest to increase the cervical interlaminar space. The cervical area was prepped and draped in the usual sterile fashion. Vital signs were closely monitored during the procedure. An IV was placed in Hep-Lock in preoperative holding. Using anterior-posterior fluoroscopy, the C7-T1 interlaminar space was identified and the skin over this site was marked and then infiltrated with 1% lidocaine subcutaneously. Subsequently, a 20-gauge 3-1/2-inch Tuohy epidural needle was inserted and advanced toward the epidural space by means of the ``hanging-drop technique and guided by AP and lateral fluoroscopy. The correct needle position in the epidural space was verified with the injection of 2 mL of the water soluble contrast dye [id number]-180 and observing an excellent epidurogram with the epidural spread of the dye, after negative aspiration for blood and CSF and in the absence of paresthesias. Again after negative aspiration, mixture containing 10 mg Dexamethasone and 2 ml of preservative- free normal saline injected and a washout of epidurogram was seen. Needle was withdrawn intact, skin was cleansed, and bandages were applied. Complications= none. Disposition= patient was placed in supine position and transferred to the recovery room area in stable condition and there was no evidence of upper or lower extremity motor or sensory deficit after the procedure patient was discharged from recovery room after discharge criteria met and home discharge instructions was given by the staff and patient will follow up for repeat epidural in 2-4 weeks
[2023-12-27 11:21] VITALS: BP 141/93; PULSE 84
--- NOTE | 2023-12-27 11:40 | FL ---
EXAMINATION TYPE: FL guided pain mgmt statistic Intraoperative/procedural fluoroscopic services were provided. Total fluoroscopy time is 9.2 seconds with a total of 2 submitted images to PACS. Please se e the operative/procedural note for further details. DAP: [id number] mGym2
== END 2023-12-27 10:57 | disposition home or self-care (01) ==
LOC: ORPAIN 09:00
PROVIDERS: ATTEND Anesthesiology
DX: M47.22 Other spondylosis with radiculopathy, cervical region (principal); M50.123 Cervical disc disorder at C6-C7 level with radiculopathy; I10 Essential (primary) hypertension
CPT/HCPCS: 62321; J1100; Q9966

== ENCOUNTER 2023-12-31 19:06 | Emergency (ER) | payer OTHER ==
[2023-12-31 19:26] VITALS: TEMP 98
[2023-12-31 20:15] LABS: Basophils # (A) 0.1 k/uL (0-0.2); Basophils % (A) 0 %; Eosinophils # (A) 0.6 k/uL (0-0.7); Eosinophils % (A) 5 %; HCT 45.5 % (39.0-53.0); HGB 15.3 gm/dL (13.0-17.5); Lymphocytes # (A) 5.2 k/uL (1.0-4.8); Lymphocytes % (A) 46 %; MCH 29.4 pg (25.0-35.0); MCHC 33.7 g/dL (31.0-37.0); MCV 87.1 fL (80.0-100.0); Mean Platelet Volume 7.3; Monocytes # (A) 0.6 k/uL (0-1.0); Monocytes % (A) 5 %; Neutrophils # (A) 4.5 k/uL (1.3-7.7); Neutrophils % (A) 40 %; Platelet Count 296 k/uL (150-450); RBC 5.22 m/uL (4.30-5.90); RDW 12.6 % (11.5-15.5); WBC 11.3 k/uL (3.8-10.6)
[2023-12-31 20:31] LABS: INR 0.9 (<1.2); Partial Thromboplastin Time 23.3 sec (22.0-30.0); Prothrombin Time 10.4 sec (10.0-12.5)
--- NOTE | 2023-12-31 20:33 | XR ---
EXAMINATION TYPE: XR chest 2V DATE OF EXAM: 12/31/2023 8:29 PM CLINICAL INDICATION:Male, 38 years old with history of Chest Pain; [facility] COMPARISON: Chest radiographs from 07/21/2020 TECHNIQUE: XR chest 2V Frontal and lateral views of the chest. FINDINGS: Lungs/Pleura: There is no evidence of pleural effusion, focal consolidation, or pneumothorax. Pulmonary vascularity: Unremarkable. Heart/mediastinum: Cardiomediastinal silhouette is unremarkable. Musculoskeletal: No acute osseous pathology. IMPRESSION: No acute cardiopulmonary disease/process.
[2023-12-31 20:53] LABS: ALT 31 U/L (4-49); AST 31 U/L (17-59); African American GFR (CKD) >90 (>60 ml/min/1.73 sqM); Alkaline Phosphatase 62 U/L (38-126); Anion Gap 7 mmol/L; Blood Urea Nitrogen 13 mg/dL (9-20); Calcium 9.5 mg/dL (8.4-10.2); Carbon Dioxide 21 mmol/L (22-30); Chloride 110 mmol/L (98-107); Glucose 96 mg/dL (74-99); Magnesium 1.8 mg/dL (1.6-2.3); Non-African American GFR(CKD) >90 (>60 ml/min/1.73 sqM); Potassium 3.7 mmol/L (3.5-5.1); Sodium 138 mmol/L (137-145); Total Bilirubin 0.3 mg/dL (0.2-1.3); Total Protein 6.4 g/dL (6.3-8.2)
[2023-12-31 21:04] VITALS: BP 147/98; RESP 16
[2023-12-31 21:38] VITALS: PULSE 86
--- NOTE | 2023-12-31 22:39 | ED ---
Chest Pain HPI - General Chief Complaint: Chest Pain Stated Complaint: chest pain headache Time Seen by Provider: 12/31/23 20:50 Source: patient Mode of arrival: ambulatory Limitations: no limitations - History of Present Illness Initial Comments: 38-year-old male presented to the ED with complaint of chest pain. Patient states that started this afternoon while he was on the toilet. Pain intermittent in nature. It is sharp/squeezing in nature and often last for 10 minutes. No associated alleviating or aggravating factors. Pain does not radiate. Does not note any other associated symptoms with this. No shortness of breath. No abdominal pain. No changes in bowel or bladder habits. No fever or chills. Patient does note he is a pack-a-day smoker since he was 15. He is unsure of any family history of anyone having heart attack or stroke prior to the age of 55. No other complaints at this time. - Related Data Home Medications Medication Instructions Recorded Confirmed Albuterol Sulfate [Proair Hfa] 1 - 2 puff INHALATION RT-QID PRN 07/21/20 12/27/23 Cetirizine HCl 10 mg PO HS 07/21/20 12/27/23 Ibuprofen [Motrin] 800 mg PO Q8H 12/22/23 12/27/23 Previous Rx's Medication Instructions Recorded Ipratropium-Albuterol Nebulize 3 ml INHALATION QID #20 neb 07/21/20 [Duoneb 0.5 mg-3 mg/3 ml Soln] Cyclobenzaprine [Flexeril] 10 mg PO TID #20 tab 04/25/23 Allergies Allergy/AdvReac Type Severity Reaction Status Date / Time No Known Allergies Allergy Verified 12/27/23 09:29 Review of Systems ROS Statement: Those systems with pertinent positive or pertinent negative responses have been documented in the HPI. ROS Other: All systems not noted in ROS Statement are negative. Past Medical History Past Medical History: Asthma, COPD History of Any Multi-Drug Resistant Organisms: None Reported Past Surgical History: Adenoidectomy, Tonsillectomy Past Anesthesia/Blood Transfusion Reactions: No Reported Reaction Past Psychological History: No Psychological Hx Reported Smoking Status: Current every day smoker - Past Family History Father Family Medical History: Deep Vein Thrombosis (DVT) General Exam Limitations: no limitations General appearance: alert, in no apparent distress Eye exam: Present: normal appearance Neck exam: Present: normal inspection Respiratory exam: Present: wheezes. Absent: chest wall tenderness Cardiovascular Exam: Present: regular rate GI/Abdominal exam: Present: soft Neurological exam: Present: alert, oriented X3 Skin exam: Present: warm, dry Course Vital Signs 12/31/23 12/31/23 12/31/23 19:08 21:03 21:04 Temperature 98 F Pulse Rate 111 H 88 Pulse Rate [ 86 Docent Coordinator ] Respiratory 20 16 Rate Blood Pressure 166/100 147/98 O2 Sat by Pulse 97 97 Oximetry Chest Pain MDM - MDM Was pt. sent in by a medical professional or institution (, PA, SALES AND CATERING COORDINATOR, urgent care, hospital, or shelter...) When possible be specific @ -No Did you speak to anyone other than the patient for history (EMS, parent, family, police, friend...)? What history was obtained from this source @ -No Did you review nursing and triage notes (agree or disagree)? Why? @ -I reviewed and agree with nursing and triage notes Were old charts reviewed (outside hosp., previous admission, EMS record, old EKG, old radiological studies, urgent care reports/EKG's, shelter records)? Report findings @ -No old charts were reviewed Differential Diagnosis (chest pain, altered mental status, abdominal pain women, abdominal pain men, vaginal bleeding, weakness, fever, dyspnea, syncope, headache, dizziness, GI bleed, back pain, seizure, CVA, palpatations, mental health, musculoskeletal)? @ -Differential Chest Pain: Stable Angina, Unstable Angina, STEMI, NSTEMI Aortic Dissection, Pneumothorax, Musculoskeletal, Esophageal Spasm GERD, Cholecystitis, Pancreatitis, Zoster, this is not meant to be an all-inclusive list. EKG interpreted by me (3pts min.). @ -EKG interpreted by me which shows a normal sinus rhythm at [address] or T wave changes. NH 158, QRS 102, QT/QTc 342/398. X-rays interpreted by me (1pt min.). @ -Chest x-ray interpreted me which revealed no evidence of acute finding. CT interpreted by me (1pt min.). @ -None done U/S interpreted by me (1pt. min.). @ -None done What testing was considered but not performed or refused? (CT, X-rays, U/S, labs)? Why? @ -None What meds were considered but not given or refused? Why? @ -None Did you discuss the management of the patient with other professionals (professionals i.e. , PA, SALES AND CATERING COORDINATOR, lab, RT, psych nurse, pediatric social worker, video coordinator, teacher, field health officer, pillowcase cutter)? Give summary @ -No Was smoking cessation discussed for >3mins.? @ -No Was critical care preformed (if so, how long)? @ -No Were there social determinants of health that impacted care today? How? (Homelessness, low income, unemployed, alcoholism, drug addiction, transportation, low edu. Level, literacy, decrease access to med. care, intermediate, rehab)? @ -No Was there de-escalation of care discussed even if they declined (Discuss DNR or withdrawal of care, Hospice)? DNR status @ -No What co-morbidities impacted this encounter? (DM, HTN, Smoking, COPD, CAD, Cancer, CVA, ARF, Chemo, Hep., AIDS, mental health diagnosis, sleep apnea, morbid obesity)? @ -None Was patient admitted / discharged? Hospital course, mention meds given and route, prescriptions, significant lab abnormalities, going to OR and other pertinent info. @ -Left AMA 38-year-old male with a past medical history significant for hypertension and pack per day smoker since he was 15 presenting to the ED with a chief complaint of chest pain. Patient states he was on the toilet today when he started to experience a sharp squeezing pain in the middle of his chest. Pain is intermittent in nature and does not radiate. Laboratory studies reviewed. CBC does show an elevated white blood cell count 11.3, elevated lymphocytes at 5.2, coagulation panel unremarkable, chemistry panel largely unremarkable. Initial troponin undetectable. EKG shows a normal sinus rhythm without acute ST or T wave changes at a rate of 99 bpm. Patient was to receive second troponin however at this time does not want to wait. Patient left AGAINST MEDICAL ADVICE. Undiagnosed new problem with uncertain prognosis? @ -No Drug Therapy requiring intensive monitoring for toxicity (Heparin, Nitro, Insulin, Cardizem)? @ -No Were any procedures done? @ -No Diagnosis/symptom? @ -Chest pain Acute, or Chronic, or Acute on Chronic? @ -Acute Uncomplicated (without systemic symptoms) or Complicated (systemic symptoms)? @ -Uncomplicated Side effects of treatment? @ -No Exacerbation, Progression, or Severe Exacerbation? @ -No Poses a threat to life or bodily function? How? (Chest pain, [place], [place], pneumonia, PE, COPD, DKA, ARF, appy, cholecystitis, CVA, Diverticulitis, Homicidal, Suicidal, threat to staff... and all critical care pts) @ -Possibly, patient leaving prior to receiving second troponin. Disposition Clinical Impression: Chest pain Disposition: LEFT AGAINST MEDICAL ADVICE Condition: Good Instructions (If sedation given, give patient instructions): Chest Pain (ED) Referrals: Ottoniel Redmond MD [Primary Care Provider] - 1-2 days
== END 2023-12-31 22:33 | disposition left against medical advice (07) ==
LOC: EC 19:06
DX: R07.89 Other chest pain (principal); F17.200 Nicotine dependence, unspecified, uncomplicated; Z53.29 Procedure and treatment not carried out because of patient's decision for other reasons
CPT/HCPCS: 36415; 71046; 80053; 83735; 84484; 85025; 85610; 85730; 93005; 99285

== ENCOUNTER → 2024-01-05 | Outpatient (CLI) | payer OTHER ==
[2024-01-05 09:56] VITALS: BP 144/100; PULSE 96; RESP 16; TEMP 98
--- NOTE | 2024-01-05 10:07 | XR ---
EXAMINATION TYPE: XR skull complete DATE OF EXAM: 01/05/2024 COMPARISON: None HISTORY: Neck pain TECHNIQUE: 4 view skull FINDINGS: Sella appears unremarkable. Nasal bone maxillary spine appear intact. No acute calvarial fr actures are identified. Temporomandibular junction as visualized appears normal. IMPRESSION: 1. No acute osseous abnormality calvarium
--- NOTE | 2024-01-05 14:08 | P.PAINPG ---
PQRS Measure Charge Sheet Comment: HISTORY OF PRESENT ILLNESS: A 38 yr old male presents today w severe and chronic neck pain x 6 mo secondary to DDD, spondylosis and facet arthropathy without myelopathy, Occipital Neuralgia, Cervicogenic SCHMITT for evaluation s/p ALESSANDRO C7-T1 #1. Pt states he experienced 100 % pain relief x 1 wk s/p procedure. Pt states pain level is provoked at 8 /10 in intensity, constant, localized in the base of the head, predominantly axial, sharp in character w occasional shooting pain towards the scalp. Pain is provoked by hyperextension, moving rapidly or over head reaching. Pain is alleviated by PT integrated w massage x 6 wks which ended Dec 2023, chiropractic treatments q3wks w last visit in Aug 2023, alternating heat & ice, medications, repositioning and rest. Cervical disability score at 15. Interventional procedures include ALESSANDRO C7-T1 x1 Medications include Ibu REVIEW OF ORGAN SYSTEMS: CONSTITUTIONAL: No fevers or chills. No recent weight loss. NEUROLOGICAL: + numbness and tingling along the distal extremities. No seizure disorders or headaches. MUSCULOSKELETAL: + pain PSYCHIATRIC: Denies current depression or suicidal thoughts. Physical Examinations : Constitutional : Cooperative , not in acute distress . Neurologic : Cranial nerve II to XII intact. No focal neurological deficits. Psychiatric : alert & oriented x 3. Matching mood & appropriate affect. Judgment & insight intact. Musculoskeletal : Cervical Spine +BL WAGNER TTP Motor strength in the deltoid and biceps: Normal right side. Normal Left side Motor strength biceps and the wrist extensors: Normal right side . Normal left side Motor strength in the triceps muscle: Normal right side. Normal left side Deep tendon reflexes: Normal at the biceps. Normal at Brachioradialis. Normal at triceps Vertebral body tenderness to deep palpation Cervical facet loading test: positive bilaterally Spurling test: positive bilaterally Neck distraction test: positive bilaterally Vanessa sign: positive bilaterally Lumbar spine Motor strength lower extremities ,thigh and legs 5/5 Right side , 5/5 Left side Deep tendon reflexes : Normal Knee Jerk. Normal Ankle Jerk Vertebral body tenderness over Garibay Test positive Lumbar facet Loading Test: positive Right / positive Left Range of motion of the lumbar spine Flexion 30 degrees, extension 10 degrees Straight Leg Raise test: Left/ Right positive at degrees Osmar test: positive right / positive left. Severe tenderness over the Sacroiliac joint on the Right / Left sides Gaenslen test: positive bilaterally Seated flexion test: positive bilaterally. Sacral spine : Severe tenderness over the Sacroiliac joint: right side / left side Range of motion: Flexion of the lumbar spine <60 degrees Range of motion: Extension of the lumbar spine <20 degrees Gaenslen's Test positive Osmar test: positive right side / left side Thigh Thrust Test Sacral Thrust Test Imaging: MRI noncontrast of the cervical spine from 10/28/23 reviewed Assessment/ Plan : Cervical DDD, Occipital Neuralgia, Cervicogenic SCHMITT Recommendation of skull x ray R51. May need additional testing if indicated. RTC in 2 wks for a re evaluation. All questions answered. I have spent greater than 30 minutes on patient care today. Dr Waldron was available by phone for the evaluation of this patient. The time was used to review the medical records including relevant urine studies and Prescription history (MAPs), review of the available imaging, evaluation and examination of the patient, coordination of care with the medical staff and if applicable referring physicians, as well as creation of the medical record PQRS Narrative: Smoking Status Current every day smoker Hx Alcohol Use (MH) No Home Medications: Ambulatory Orders Albuterol Sulfate [Proair Hfa] 1 - 2 puff INHALATION RT-QID PRN 07/21/20 Cetirizine HCl 10 mg PO HS 07/21/20 Ipratropium-Albuterol Nebulize [Duoneb 0.5 mg-3 mg/3 ml Soln] 3 ml INHALATION QID #20 neb 07/21/20 Cyclobenzaprine [Flexeril] 10 mg PO TID #20 tab 04/25/23 Ibuprofen [Motrin] 800 mg PO Q8H 12/22/23 Controlled Substance Measures - Controlled Substance Measures Is patient prescribed a controlled substance at discharge?: No
== END ==
LOC: PNWHC3 08:11
PROVIDERS: ATTEND Specialist
DX: M54.81 Occipital neuralgia (principal); G44.86 Cervicogenic headache; M50.30 Other cervical disc degeneration, unspecified cervical region; F17.200 Nicotine dependence, unspecified, uncomplicated
CPT/HCPCS: 70260; 99211

== ENCOUNTER → 2024-01-17 | Outpatient (CLI) | payer OTHER ==
--- NOTE | 2024-01-17 10:54 | CA ---
Exercise Stress Test Report Name: Freddy Boles Exam Date: 01/17/2024 10:16 Exam Location: [place] Stress Ht (in): 72 Wt (lb): 174 BSA: 2.01 Ordering Phys: Abby Suarez MD Referring Phys: ABBY SUAREZ Technologist: YONATAN JASMINE Age: 38 Gender: M : 1985 Procedure CPT: Indications: R07.9 CHEST PAIN ICD-10 Codes: Patient History: CP, NUMBNESS FACE/NECK, HTN, TOB, COPD, ASTHMA Medications: IBUPROFEN, EXCEDRINE, FLEXORAL, ALBUTEROL Meds past 24 hrs: Pretest Chest Pain: STRESS TEST Hung Protocol Exercise Duration (min:sec): 08:[address] Depressions (mm): Angina Score: Scott Score: Resting HR (bpm): 81 Peak HR (bpm): 171 Resting BP (mmHg): 155 / 99 Peak BP (mmHg): 213 / 90 MPHR: 181 Target HR: 154 % MPHR: 94 METS: 10.3 Total Dose: Peak Dose: Atropine: Double Product: 70340 BP Response: Stress Termination: Reached target heart rate Stress Symptoms: Dyspnea (Patient requested albuterol inhaler after conclusion of the test during recovery 1 minute 40 seconds) Stress Summary: ECG ANALYSIS Resting ECG: Stress ECG: CONCLUSIONS Baseline EKG revealed a normal sinus rhythm without significant ST-T changes. Patient walked on a standard Hung protocol for 9 minutes and achieved a maximum heart rate of 170 bpm which is more than 85% of predicted maximal. He developed some shortness of breath requiring albuterol inhaler about a minute and a half of completion of the test. However but no anginal symptoms were noted. No ST segment changes to indicate ischemia. No significant arrhythmia. This is a negative stress test with good exercise capacity. Resting blood pressure was 155/98 peak blood pressure was 213/90. This is a negative stress test with good exercise capacity and hypertensive response to exercise Dr. Mariam Quezada MD (Electronically Signed) Final Date: 17 January 2024 10:53
== END | disposition home or self-care (01) ==
LOC: RADNMMAIN 09:23
PROVIDERS: ATTEND Family Medicine
DX: R07.9 Chest pain, unspecified (principal); I10 Essential (primary) hypertension; J44.89 Other specified chronic obstructive pulmonary disease; R20.0 Anesthesia of skin; R06.02 Shortness of breath
CPT/HCPCS: 93017

== ENCOUNTER → 2024-01-18 | Outpatient (CLI) | payer OTHER ==
--- NOTE | 2024-01-20 10:03 | MR ---
EXAMINATION TYPE: MR brain wo con DATE OF EXAM: 01/18/2024 8:39 PM CLINICAL INDICATION:Male, 38 years old with history of M54.81, G44.86, R51; PHH, Headaches, Occipital neuralgia, Numbness and pain into both shoulders COMPARISON: None. TECHNIQUE: Multi planar, multi sequence imaging was performed through the brain including: T1, T2, In version recovery, Diffusion weighted imaging, and gradient echo imaging. No gadolinium was given. FINDINGS: The carrizales-white junctions, ventricular system, basal cisterns appear unremarkable. Left frontal lobe medial matter change foci of high T2 signal intensity are seen within the periventricular white kenisha er. Midline structures show no abnormality. Diffusion-weighted imaging shows no evidence of restricte d diffusion. The susceptibility weighted images do not reveal any evidence for micro-hemorrhage. Cere bellar tonsils closely approximate the inferior aspect of the foramen magnum. And may tip slightly be low up to 2 mm. The bone marrow signal is within normal limits. Paranasal sinuses and mastoid air cells: Mild mucosal thickening of the inferior maxillary sinuses. Visualized orbits: Orbital contents are intact. IMPRESSION: 1. No evidence of intracranial mass or acute/subacute infarct. 2. Single focus of nonspecific white matter changes could be sequela of headaches versus demyelinatio n which is felt to be less likely. 3. Mild cerebellar tonsillar ectopia.
== END | disposition home or self-care (01) ==
LOC: RADMRIMAIN 20:30
PROVIDERS: ATTEND Specialist
DX: M54.81 Occipital neuralgia (principal); G44.86 Cervicogenic headache; R51.0 Headache with orthostatic component, not elsewhere classified; M54.12 Radiculopathy, cervical region
CPT/HCPCS: 70551

== ENCOUNTER → 2024-01-25 | Outpatient (CLI) | payer OTHER ==
[2024-01-25 11:17] VITALS: BP 145/94; PULSE 78; RESP 16; TEMP 97.5
--- NOTE | 2024-01-25 14:54 | P.PAINPG ---
PQRS Measure Charge Sheet Comment: HISTORY OF PRESENT ILLNESS: A 38 yr old male w and son at side presents today w severe and chronic neck pain x 6 mo secondary to DDD, spondylosis and facet arthropathy without myelopathy, Occipital Neuralgia, Cervicogenic SCHMITT for evaluation. Pt states pain level is provoked at 8 /10 in intensity, constant, localized in the base of the head, predominantly axial, sharp in character w occasional shooting pain towards the scalp. Pain is provoked by hyperextension, moving rapidly or over head reaching. Pain is alleviated by PT integrated w massage x 12 wks which he is currently in, chiropractic treatments q3wks w last visit in Aug 2023, alternating heat & ice, medications, repositioning and rest. Cervical disability score at 15. Interventional procedures include ALESSANDRO C7-T1 x1 Medications include Excedrin Migraine REVIEW OF ORGAN SYSTEMS: CONSTITUTIONAL: No fevers or chills. No recent weight loss. NEUROLOGICAL: + numbness and tingling along the distal extremities. No seizure disorders or headaches. MUSCULOSKELETAL: + pain PSYCHIATRIC: Denies current depression or suicidal thoughts. Physical Examinations : Constitutional : Cooperative , not in acute distress . Neurologic : Cranial nerve II to XII intact. No focal neur ological deficits. Psychiatric : alert & oriented x 3. Matching mood & appropriate affect. Judgment & insight intact. Musculoskeletal : Cervical Spine +BL WAGNER TTP Motor strength in the deltoid and biceps: Normal right side. Normal Left side Motor strength biceps and the wrist extensors: Normal right side . Normal left side Motor strength in the triceps muscle: Normal right side. Normal left side Deep tendon reflexes: Normal at the biceps. Normal at Brachioradialis. Normal at triceps Vertebral body tenderness to deep palpation Cervical facet loading test: positive bilaterally Spurling test: positive bilaterally Neck distraction test: positive bilaterally Vanessa sign: positive bilaterally Lumbar spine Motor strength lower extremities ,thigh and legs 5/5 Right side , 5/5 Left side Deep tendon reflexes : Normal Knee Jerk. Normal Ankle Jerk Vertebral body tenderness over Garibay Test positive Lumbar facet Loading Test: positive Right / positive Left Range of motion of the lumbar spine Flexion 30 degrees, extension 10 degrees Straight Leg Raise test: Left/ Right positive at degrees Osmar test: positive right / positive left. Severe tenderness over the Sacroiliac joint on the Right / Left sides Gaenslen test: positive bilaterally Seated flexion test: positive bilaterally. Sacral spine : Severe tenderness over the Sacroiliac joint: right side / left side Range of motion: Flexion of the lumbar spine <60 degrees Range of motion: Extension of the lumbar spine <20 degrees Gaenslen's Test positive Osmar test: positive right side / left side Thigh Thrust Test Sacral Thrust Test Imaging: MRI noncontrast of the cervical spine from 10/28/23 reviewed MRI noncontrast of the brain from 01/19/24 reviewed Assessment/ Plan : Cervical DDD, Occipital Neuralgia, Cervicogenic SCHMITT Recommendation of BL WAGNER injections #1. May need a series of injections for optimal pain relief. Risks, benefits of procedure discussed and pt verbalized understanding. Protocol for discontinuation/ continuation of medications david procedure discussed. Referral to Dr Armond lanza: cerebellar tonsillar ectopia of 2mm. Script provided. All questions answered. I have spent greater than 30 minutes on patient care today. Dr Waldron was available by phone for the evaluation of this patient. The time was used to review the medical records including relevant urine studies and Prescription history (MAPs), review of the available imaging, evaluation and examination of the patient, coordination of care with the medical staff and if applicable referring physicians, as well as creation of the medical record PQRS Narrative: Smoking Status Current every day smoker Hx Alcohol Use (MH) No Home Medications: Ambulatory Orders Albuterol Sulfate [Proair Hfa] 1 - 2 puff INHALATION RT-QID PRN 07/21/20 Cetirizine HCl 10 mg PO HS 07/21/20 Ipratropium-Albuterol Nebulize [Duoneb 0.5 mg-3 mg/3 ml Soln] 3 ml INHALATION QID #20 neb 07/21/20 Cyclobenzaprine [Flexeril] 10 mg PO TID #20 tab 04/25/23 Ibuprofen [Motrin] 800 mg PO Q8H 12/22/23 lisinopriL [Zestril] 5 mg PO DAILY 01/25/24 Controlled Substance Measures - Controlled Substance Measures Is patient prescribed a controlled substance at discharge?: No
== END | disposition home or self-care (01) ==
LOC: PNWHC3 09:59
PROVIDERS: ATTEND Specialist
DX: M54.12 Radiculopathy, cervical region (principal); M50.30 Other cervical disc degeneration, unspecified cervical region; M54.81 Occipital neuralgia; G44.86 Cervicogenic headache; F17.200 Nicotine dependence, unspecified, uncomplicated
CPT/HCPCS: 99211